=== PATIENT | female | born 1965 | race Caucasian/White ===

== ENCOUNTER → 2018-07-02 08:02 | Outpatient (CLI) | payer BC, SELFPAY ==
--- NOTE | 2018-07-02 08:04 | BI_ITS ---
MAMMOGRAPHY - BILATERAL SCREENING REASON FOR EXAM: Female, 52 years old. Routine annual screening examination. PERTINENT HISTORY: Non-contributory. TECHNIQUE: Digital bilateral breast crescencio (3D mammographic acquisition) in the CC and MLO projections. 2-D mediolateral oblique (MLO) and craniocaudad (CC) views of both breasts were obtained. CAD: Full Field Digital Mammography with Computer Added Detection was performed. COMPARISON: Comparison is made with prior study dated April 13, 2017. FINDINGS: Breast Composition: The breasts are heterogeneously dense, which may obscure small masses. There are no dominant masses or suspicious calcifications. Stable small bilateral axillary lymph nodes. No other significant abnormalities are identified. There has been no significant change since the prior study. BI/SCREENING MAMM (CAD), BILAT IMPRESSION: Stable bilateral screening mammogram. Yearly follow-up mammogram recommended. (A) ASSESSMENT CATEGORY: BIRADS Category 2: Benign. A letter regarding these results will be sent to the patient by the facility within 30 days. Approximately 10% of breast cancers are not detected by mammography. A normal mammogram should not delay biopsy of a clinically suspicious abnormality. [id number] Electronically Signed: Evens Streeter MD at 13:55 EST Tel [phone], Service support ,
== END ==
PROVIDERS: Family Provider Physician Assistant; PCP Physician Assistant; Visit Provider Obstetrics & Gynecology
DX: Z12.31 Encounter for screening mammogram for malignant neoplasm of breast (principal)
CPT/HCPCS: 77063; 77067

== ENCOUNTER 2018-08-29 08:43 | Inpatient (IN) | payer BC, SELFPAY ==
[2018-08-29] VITALS (12 sets, daily range): BP systolic 119–166; BP diastolic 64–87; PULSE 75–121; RESP 16–24; TEMP 36.9–38.8; O2SAT 88–99; BMI 34.0
--- NOTE | 2018-08-29 09:10 | ED.VISSUMM ---
- ER Visit Summary Date of Service: 08/29/18 Chief Complaint: Cough, fever and shortness of breath History of Present Illness: The patient is a 52 F past medical history of hypertension and depression. Also prediabetes. He states since last Monday about 6 days she started having a cough that was productive of sputum. Fever and is developed shortness of breath. She is also had some nausea vomiting and diarrhea. She went to the express care today at the [facility] had a chest x-ray that they were concerned was pneumonia and they sent her to the evaluation. Also there she was hypoxic with her pulse ox in the low to mid 80s. Physical Examination: Middle-aged female. Vital signs stable her pulse ox is 90% on room air sitting in bed. Heart rate 121. Fevers 101.9. Clinically she does not look septic or toxic. Obviously that is a possibility. HEENT exam mildly dry mucous membranes. No facial trauma. No droop. Neck nontender no JVD. Lungs dry cough. Coarse in both bases. Heart tachycardic rate about 120 no murmur. Abdomen soft and nontender. Normal bowel sounds no peritoneal signs. Remedies moving all 4. Calves nontender without edema or cords. Neurologically the patient is awake and alert. With no focal motor or sensory deficits. Back exam normal. Test Results: [facility] sent me over a copy of her chest x-ray it appears that she has bilateral lower lobe pneumonia. There is no effusion. She has a normal cardiac silhouette. CBC normal. White count of 5. Hemoglobin 13. Unremarkable potassium 3.4. Normal creatinine and gap. Lactic acid 1.4. Blood cultures pending. Emergency Department Course and Treatment: Patient will be treated with 2 L normal saline. P.o. Tylenol. Started on IV Rocephin and Zithromax for antibiotic treatment of community-acquired pneumonia On repeat exam patient is doing well at 10:08 AM. She and I discussed her test results. She is comfortable with the admission. I have already spoken to the hospitalist. Treatment Plan: IV antibiotics and IV fluids. Disposition: Admission Impression: Acute bilateral lower lobe pneumonia (community-acquired) This note was generated with [employer] software. It may contain incorrect words, spelling, and punctuation that were not noted in review of the chart prior to signing ED Disposition - Plan for ED Patient: Chief Complaint: Shortness of Breath Referrals: Will Miles PA [Primary Care Provider] -
--- NOTE | 2018-08-29 09:13 | ED.DCSUM_ITS ---
- ER Visit Summary Date of Service: 08/29/18 Chief Complaint: Cough, fever and shortness of breath History of Present Illness: The patient is a 52 F past medical history of hypertension and depression. Also prediabetes. He states since last Monday about 6 days she started having a cough that was productive of sputum. Fever and is developed shortness of breath. She is also had some nausea vomiting and diarrhea. She went to the express care today at the [facility] had a chest x-ray that they were concerned was pneumonia and they sent her to the evaluation. Also there she was hypoxic with her pulse ox in the low to mid 80s. Physical Examination: Middle-aged female. Vital signs stable her pulse ox is 90% on room air sitting in bed. Heart rate 121. Fevers 101.9. Clinically she does not look septic or toxic. Obviously that is a possibility. HEENT exam mildly dry mucous membranes. No facial trauma. No droop. Neck nontender no JVD. Lungs dry cough. Coarse in both bases. Heart tachycardic rate about 120 no murmur. Abdomen soft and nontender. Normal bowel sounds no peritoneal signs. Remedies moving all 4. Calves nontender without edema or cords. Neurologically the patient is awake and alert. With no focal motor or sensory deficits. Back exam normal. Test Results: [place] sent me over a copy of her chest x-ray it appears that she has bilateral lower lobe pneumonia. There is no effusion. She has a normal cardiac silhouette. CBC normal. White count of 5. Hemoglobin 13. Unremarkable potassium 3.4. Normal creatinine and gap. Lactic acid 1.4. Blood cultures pending. Emergency Department Course and Treatment: Patient will be treated with 2 L normal saline. P.o. Tylenol. Started on IV Rocephin and Zithromax for antibiotic treatment of community-acquired pneumonia On repeat exam patient is doing well at 10:08 AM. She and I discussed her test results. She is comfortable with the admission. I have already spoken to the hospitalist. Treatment Plan: IV antibiotics and IV fluids. Disposition: Admission Impression: Acute bilateral lower lobe pneumonia (community-acquired) This note was generated with [employer] software. It may contain incorrect words, spelling, and punctuation that were not noted in review of the chart prior to signing ED Disposition - Plan for ED Patient: Chief Complaint: Shortness of Breath Referrals: Will Miles PA [Primary Care Provider] -
[2018-08-29] MEDS: 0.9% Normal Saline 1,000 ML 999 ML IV ×2 (09:25)
[2018-08-29] MEDS: Ceftriaxone 1 GM/50 ML BAG IV (09:25)
--- NOTE | 2018-08-29 09:38 | ED.RN ---
pt drinking water. waiting to do sepsis screen 15 after water to ensure proper temp.
[2018-08-29 09:39] LABS: Absolute Lymphocyte Count 0.76 X10^3/ul (0.83-4.51); Absolute Neutrophil Count 4.2 X10^3/uL (2.0-7.7); Basophil# 0.01 X10^3/uL; Basophil% 0.2 % (0-1); Hematocrit 42.6 % (37-47); Hemoglobin 13.6 g/dl (12.0-15.0); Lymphocyte # 0.76 X10^3/ul (4.0); Lymphocyte % 14.5 % (19-41); Mean Corp Hgb Conc 31.9 g/gl (32-36); Mean Corpuscular Hgb 29.8 pg (27.0-32.0); Mean Corpuscular Volume 93.2 fL (81-99); Mean Platelet Vol. 10.3 fl (6.2-12.0); Monocyte# 0.25 X10^3/uL; Monocyte% 4.8 % (0-10); Neutrophil # 4.21 X10^3/uL (2.7-7.7); Neutrophil % 80.3 % (47-70); Platelet Count 188 K/mm3 (150-450); RBC Distribution Width CV 13.7 % (11.6-14.6); RBC Distribution Width SD 46.1 fl (35.1-43.9); Red Blood Count 4.57 M/mm3 (4.2-5.4); White Blood Count 5.2 K/mm3 (4.4-11.0)
[2018-08-29 09:41] LABS: Anion Gap 11 (5-15); BUN 11 mg/dL (7-18); BUN/Creat Ratio 15.7 RATIO (10-20); Calcium,Total 8.6 mg/dL (8.5-10.1); Chloride 100 mmol/L (98-107); EST Glomerular Filtration Rate 93 mL/min (>60); Est Glom Filt Rate - Afr Amer 113 mL/min (>60); Estimated Creatinine Clearance 74.35 ml/min; Glucose 152 mg/dL (74-106); Potassium 3.4 mmol/L (3.5-5.1); Sodium Level 135 mmol/L (136-145)
[2018-08-29] MEDS: Acetaminophen 500 MG Tablet 1000 MG PO (09:45)
[2018-08-29 09:47] LABS: POSITIVE COUNT NO; POSITIVE DIFFERENTIAL NO; POSITIVE MORPHOLOGY NO
[2018-08-29 09:51] LABS: Lactic Acid 1.4 mmol/L (0.4-2.0)
--- NOTE | 2018-08-29 10:04 | NURSING ---
DR FAULKNER FOR DR SNIDER
--- NOTE | 2018-08-29 10:20 | NURSING ---
MED SURG KAUSHIK FRASER CAP, HYPOXIA
--- NOTE | 2018-08-29 11:45 | HP.PCM_ITS ---
Problem List (1) Hypoxia Status: Acute (2) Sepsis Status: Acute (3) Community acquired pneumonia Status: Acute (4) GERD (gastroesophageal reflux disease) Status: Chronic (5) Depression Status: Chronic (6) Anxiety Status: Chronic (7) Prediabetes Status: Chronic History of Present Illness Date of Admission: 08/29/18 Chief Complaint: Fever, chills, productive cough. The patient is a 52 year old F with past medical history as mentioned above presented to the emergency room because of 6 days history of fever with chills, productive cough and mild shortness of breath. Her symptoms started around 6 days ago with flulike symptoms, mainly subjective fever with chills, associated with productive cough with light yellow sputum as well as body aches and pains and without aggravating or relieving factors. Over the last couple of days, she started having associated mild shortness of breath on activity and she continued to have productive cough with light yellow sputum. She did not check her temperature at home. She had diarrhea over the last couple of days, 3 times a day, loose stool without blood. Today, she went to urgent care where she had chest x-ray done and she was informed that she has bilateral pneumonia and she was sent to ER for evaluation. Upon arrival to ER, patient was febrile, tachycardic, blood pressure was slightly elevated, pulse ox was 90% on room air. Her routine blood work was remarkable for potassium of 3.4, blood sugar of 153, otherwise normal. Her lactic acid was normal. Chest x-ray official report reviewed and revealed base of the right upper lobe infiltrate as well as bilateral lower lung infiltrate. She is being admitted for bilateral community- acquired pneumonia with sepsis and complicated by hypoxia. Past Medical History Past Medical History (Chronic Problems): Chronic Problems GERD (gastroesophageal reflux disease) (Chronic) Depression (Chronic) Anxiety (Chronic) Prediabetes (Chronic) Allergies No Known Allergies Allergy (Verified 08/29/18 08:43) Home Medications: Ambulatory Orders Medication Instructions Recorded Paroxetine HCl [Paxil] 30 mg PO DAILY 08/29/18 Surgical History: - - Carpal tunnel syndrome surgery. Meniscal tear repair of the right knee. 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 Paternal History Items: No pertinent history Review of Systems Constitutional: Reports: Anorexia, Chills, Fever, Malaise. Denies: Weakness Eyes: Denies: Blurred vision, Double vision, Drainage, Redness HEENT: Reports: Nasal Congestion. Denies: Difficulty Hearing, Ear Pain, Eye Pain, Sore Throat Cardiovascular: Denies: Chest Pain, Chest Pressure, Light Headedness, Palpitations, Syncope Respiratory: Reports: Cough, Shortness of Breath, Sputum production. Denies: Pleuritic Pain, Wheezing Gastrointestinal: Reports: Diarrhea. Denies: Abdominal Pain, Constipation, Nausea, Vomiting Genitourinary: Denies: Dysuria, Frequency, Hematuria Musculoskeletal: Denies: Arm Pain, Back Pain, Foot Pain Skin: Denies: Dryness, Rash Neurological: Denies: Balance problems, Double vision, Change in Speech, Slurred speech, Confusion, Headaches, Incoordination, Numbness Psychiatric: Reports: Anxiety, Depression VTE Information - Inpt Only VTE Present on Admission: No VTE Mechan Device Prophylaxis: None VTE Pharm Prophylaxis ordered?: No Patient Problems: Active and Suspected Problems Hypoxia (Acute) Sepsis (Acute) Community acquired pneumonia (Acute) - Physical Exam General: Alert, Oriented x3, Cooperative, No apparent distress HEENT: Atraumatic, PERRLA, EOMI, Normocephalic Oral: Moist Mucosa, No Gingival or Mucosal Lesions/ Ulcerations Neck: Supple, No JVD, Negative Carotid Bruits, Trachea Midline, Thyroid Normal Size and Texture Lungs: No rhonchi, No wheeze, Diminished, Rales, - - Decreased breath sounds bilateral, faint crackles at the right base. Cardiovascular: Regular rate, Regular Rhythm, Normal S1, Normal S2, No murmurs, PMI Normal Abdomen: Bowel Sounds Present, Soft, Non Tender, Non-Distended, No Hepato-splenomegaly, Obese Extremities: No clubbing, No cyanosis, No edema Skin: No rashes, No breakdown Lymphatic: No Cervical, Supraclavicular, or Inguinal Adenopathy Neurological: Cranial nerves II-XII grossly intact, Motor Exam 5/5 strength throughout Psych/Mental Status: Normal Affect, Appropriate, Alert and oriented to time, place, person, mood and affect Vital Signs Temp Pulse Resp BP Pulse Ox 0 F L 79 21 H 121/77 H 92 08/29/18 11:24 08/29/18 11:24 08/29/18 11:24 08/29/18 11:24 08/29/18 11:24 Oxygen Flow Rate (L/min) 2 Oxygen Delivery Method Nasal Cannula Weight: 186 lb Body Mass Index (BMI) 34.0 Laboratory Tests Past 24 Hrs 08/29/18 08/29/18 08/29/18 09:10 09:10 09:10 WBC 5.2 RBC 4.57 Hgb 13.6 Hct 42.6 MCV 93.2 MCH 29.8 MCHC 31.9 L RDW 13.7 RDW Differential 46.1 H Plt Count 188 MPV 10.3 Immature Gran % (Auto) 0.200 Neut % (Auto) 80.3 H Lymph % (Auto) 14.5 L [place] % (Auto) 4.8 Eos % (Auto) 0.0 Baso % (Auto) 0.2 Absolute Neuts (auto) 4.2 Absolute Lymphs (auto) 0.76 L Total Counted Not Reportable Sodium 135 L Potassium 3.4 L Chloride 100 Carbon Dioxide 24.0 Anion Gap 11 BUN 11 Creatinine 0.70 Estim Creat Clear Calc 74.35 Est GFR (MDRD) Af Amer 113 Est GFR (MDRD) Non-Af 93 BUN/Creatinine Ratio 15.7 Glucose 152 H Lactic Acid 1.4 Calcium 8.6 Assessment/Plan All Active Problems Hypoxia (Acute) Sepsis (Acute) Community acquired pneumonia (Acute) This is a 52 years old female patient was sent from urgent care to ED for evaluation because she was found to have bilateral pneumonia on chest x-ray and she is being admitted for bilateral community-acquired pneumonia with sepsis as well as hypoxia. #1 bilateral community-acquired pneumonia/sepsis: Chest x-ray from the urgent care reviewed, revealed bilateral pneumonia, involving the base of the right upper lobe as well as bilateral lower lungs. Patient is septic based on fever, tachycardia upon arrival to ER as well as source of infection. At this time, her pulse ox is 92% on 2 L, blood pressure stable, heart rate stable. Her lactic acid is normal, no leukocytosis. Plan: Admit to Med[facility] floor, cardiac monitoring, blood culture, sputum culture, urinalysis, pneumococcal and Legionella antigen, respiratory panel for viruses, IV Rocephin and Zithromax for pneumonia, albuterol every 4 hours, repeat CBC and BMP tomorrow morning, incentive spirometer, chest physiotherapy. #2 hypoxia: Secondary to above. Patient never smoked. Initially upon arrival to ER, pulse ox was 90% on room air. Pulse ox improved with oxygen 2 L. Plan for albuterol every 4 hours, incentive spirometer, wean off oxygen as tolerated. #3 prediabetes: Not on any treatment. Blood sugar is 154. Plan: We will do hemoglobin A1c, Accu-Cheks q. before meals at bedtime. #4 GERD: She is not on any medications. Denies any complaints. Stable. #5 depression/anxiety: Continue Paxil. #6 DVT prophylaxis: Low-risk patient, no prophylaxis indicated. This note was generated with [employer] dictation software. It may contain incorrect words, spelling, and punctuation that were not noted in checking the note before signing. Code Visit Inpatient E&M: 15204 Init Hosp L3
[2018-08-29 11:50] LABS: Color, Urine Straw (Yellow); Glucose, Dipstick Normal (Normal); Ketone-Dipstick 15 mg/dl (Negative); Leukocyte Esterase-Dipstick Negative /ul (Negative); Nitrite-Dipstick Negative (Negative); Occult Blood-Urine Negative /ul (Negative); Protein-Dipstick Negative (Negative); Specific Gravity, Urine 1.005 (1.002-1.030); Urine Bilirubin Dipstick Negative (Negative); Urine Clarity Clear (Clear); Urine Urobilinogen Normal (Normal); Urine pH 6.5 (5.0 - 8.0)
--- NOTE | 2018-08-29 12:22 | RAD_ITS ---
STUDY: X-RAY CHEST REASON FOR EXAM: Female, 52 years old. Cough and shortness of breath. TECHNIQUE: PA and lateral views of the chest. COMPARISON: None. FINDINGS: EKG electrodes are seen. There is elevation of the right hemidiaphragm. Patchy infiltrate in the right upper and right lower lobes as well as in the lingular segment of the left upper lobe. Follow-up is recommended. There is no demonstrated pleural abnormality. Normal size heart. Normal mediastinum and hien. Normal visualized pulmonary arteries. Normal visualized aortic arch and descending thoracic aorta. Normal visualized thoracic spine. Normal visualized ribs, clavicles, and shoulders. There is no demonstrated abnormality of the visualized soft tissue structures of the upper abdomen. RAD/Chest PA and Lateral IMPRESSION: Bilateral patchy infiltrates. Follow-up is recommended. Electronically Signed: Evens Streeter MD at 15:22 EST Tel [phone], Service support ,
[2018-08-29 12:37] LABS: Hemoglobin A1c 6.7 % (4.2-6.3)
[2018-08-29 16:36] LABS: Bedside Glucose 87 mg/dL (70-110)
[2018-08-29] MEDS: Acetaminophen 325 MG Tablet 650 MG PO (16:56)
[2018-08-29] MEDS: PARoxetine 10 MG Tablet 30 MG PO (17:56)
[2018-08-29] MEDS: 0.9% Normal Saline 1,000 ML 100 ML IV (21:20)
[2018-08-29] MEDS: guaiFENesin 1,200 MG Tablet 1200 MG PO (21:21)
[2018-08-29] MEDS: DiphenhydrAMINE 25 MG Capsule PO (22:12)
[2018-08-29 22:16] LABS: Bedside Glucose 84 mg/dL (70-110)
[2018-08-30] VITALS (10 sets, daily range): BP systolic 109–134; BP diastolic 68–80; PULSE 77–85; RESP 16–18; TEMP 36.9–37.2; O2SAT 92–96
[2018-08-30] MEDS: Acetaminophen 325 MG Tablet 650 MG PO ×4 (00:05→18:04)
[2018-08-30] MEDS: Benzonatate 100 MG Capsule PO ×3 (00:27→21:38)
[2018-08-30] MEDS: 0.9% Normal Saline 1,000 ML 100 ML IV ×2 (06:03→16:52)
[2018-08-30 06:16] LABS: Bedside Glucose 94 mg/dL (70-110)
[2018-08-30 06:35] LABS: Anion Gap 9 (5-15); BUN 4 mg/dL (7-18); BUN/Creat Ratio 7.3 RATIO (10-20); Calcium,Total 8.1 mg/dL (8.5-10.1); Chloride 107 mmol/L (98-107); Creatinine, Serum 0.55 mg/dL (0.55-1.02); EST Glomerular Filtration Rate 124 mL/min (>60); Est Glom Filt Rate - Afr Amer 149 mL/min (>60); Estimated Creatinine Clearance 94.63 ml/min; Glucose 94 mg/dL (74-106); Potassium 4.2 mmol/L (3.5-5.1); Sodium Level 141 mmol/L (136-145)
[2018-08-30 06:39] LABS: Absolute Lymphocyte Count 1.12 X10^3/ul (0.83-4.51); Absolute Neutrophil Count 2.5 X10^3/uL (2.0-7.7); Basophil# 0.01 X10^3/uL; Basophil% 0.3 % (0-1); Hematocrit 40.9 % (37-47); Hemoglobin 12.9 g/dl (12.0-15.0); Lymphocyte # 1.12 X10^3/ul (4.0); Lymphocyte % 29.7 % (19-41); Mean Corp Hgb Conc 31.5 g/gl (32-36); Mean Corpuscular Hgb 30.1 pg (27.0-32.0); Mean Corpuscular Volume 95.6 fL (81-99); Mean Platelet Vol. 10.2 fl (6.2-12.0); Monocyte# 0.13 X10^3/uL; Monocyte% 3.4 % (0-10); Neutrophil % 66.3 % (47-70); Platelet Count 174 K/mm3 (150-450); RBC Distribution Width CV 14.1 % (11.6-14.6); RBC Distribution Width SD 48.9 fl (35.1-43.9); Red Blood Count 4.28 M/mm3 (4.2-5.4); White Blood Count 3.8 K/mm3 (4.4-11.0)
[2018-08-30 06:43] LABS: POSITIVE COUNT NO; POSITIVE DIFFERENTIAL NO; POSITIVE MORPHOLOGY NO
--- NOTE | 2018-08-30 08:10 | PCM.PROGNOTE ---
Patient Problems: Active and Suspected Problems Hypoxia (Acute) Sepsis (Acute) Community acquired pneumonia (Acute) Subjective: Chief complaint: Follow-up after admission for acute bilateral lower lobe community-acquired pneumonia with sepsis as well as hypoxia. Patient seen and examined. No acute events overnight. She reported mild improvement of her symptoms, less short of breath but still complaining of cough. Denies fever chills. She complained of headache as well. She is afebrile, blood pressure and heart rate are stable, pulse ox is 93% on 2.5 L. - Physical Exam General: Alert, Oriented x3, Cooperative, No apparent distress HEENT: Atraumatic, PERRLA, EOMI, Normocephalic Oral: Moist Mucosa, No Gingival or Mucosal Lesions/ Ulcerations Neck: Supple, No JVD, Negative Carotid Bruits, Trachea Midline, Thyroid Normal Size and Texture Lungs: No rhonchi, No wheeze, Diminished, Rales, - - Decreased breath sounds bilaterally more at the bases, bilateral faint basal crackles. Cardiovascular: Regular rate, Regular Rhythm, Normal S1, Normal S2, PMI Normal Abdomen: Bowel Sounds Present, Soft, Non Tender, Non-Distended, No Hepato-splenomegaly Extremities: No clubbing, No cyanosis, No edema Skin: No rashes, No breakdown Lymphatic: No Cervical, Supraclavicular, or Inguinal Adenopathy Neurological: Cranial nerves II-XII grossly intact, Neuro grossly intact Psych/Mental Status: Normal Affect, Appropriate, Alert and oriented to time, place, person, mood and affect Vital Signs Temp Pulse Resp BP Pulse Ox 98.6 F 77 18 125/69 H 93 08/30/18 07:40 08/30/18 07:40 08/30/18 07:40 08/30/18 07:40 08/30/18 07:40 Oxygen Flow Rate (L/min) 2.5 Oxygen Delivery Method Nasal Cannula Weight: 186 lb Body Mass Index (BMI) 34.0 Intake and Output for Last 24 Hours 08/28/18 08/29/18 08/30/18 23:59 23:59 23:59 Intake Total 1013 / 1013 1910 / 1910 Output Total 300 / 300 600 / 600 Balance 713 / 713 1310 / 1310 Microbiology Past 72 Hours 08/29/18 11:55 Gram Stain - Final Sputum, Expectorated/Coughed 08/29/18 11:22 Streptococcus pneumoniae Antigen (M - Final Urine, Clean Catch 08/29/18 11:22 Legionella Antigen - Final Urine, Clean Catch Laboratory Tests Past 24 Hrs 08/29/18 08/29/18 08/29/18 09:10 09:10 09:10 WBC 5.2 RBC 4.57 Hgb 13.6 Hct 42.6 MCV 93.2 MCH 29.8 MCHC 31.9 L RDW 13.7 RDW Differential 46.1 H Plt Count 188 MPV 10.3 Immature Gran % (Auto) 0.200 Neut % (Auto) 80.3 H Lymph % (Auto) 14.5 L [place] % (Auto) 4.8 Eos % (Auto) 0.0 Baso % (Auto) 0.2 Absolute Neuts (auto) 4.2 Absolute Lymphs (auto) 0.76 L Total Counted Not Reportable Sodium 135 L Potassium 3.4 L Chloride 100 Carbon Dioxide 24.0 Anion Gap 11 BUN 11 Creatinine 0.70 Estim Creat Clear Calc 74.35 Est GFR (MDRD) Af Amer 113 Est GFR (MDRD) Non-Af 93 BUN/Creatinine Ratio 15.7 Glucose 152 H Hemoglobin A1c Lactic Acid 1.4 Calcium 8.6 Urine Color Urine Clarity Urine pH Ur Specific [place] Urine Protein Urine Glucose (UA) Urine Ketones Urine Occult Blood Urine Nitrite Urine Bilirubin Urine Urobilinogen Ur Leukocyte Esterase 08/29/18 08/29/18 08/30/18 09:10 11:22 05:50 WBC RBC Hgb Hct MCV MCH MCHC RDW RDW Differential Plt Count MPV Immature Gran % (Auto) Neut % (Auto) Lymph % (Auto) [place] % (Auto) Eos % (Auto) Baso % (Auto) Absolute Neuts (auto) Absolute Lymphs (auto) Total Counted Sodium 141 Potassium 4.2 Chloride 107 Carbon Dioxide 25.0 Anion Gap 9 BUN 4 L Creatinine 0.55 Estim Creat Clear Calc 94.63 Est GFR (MDRD) Af Amer 149 Est GFR (MDRD) Non-Af 124 BUN/Creatinine Ratio 7.3 L Glucose 94 Hemoglobin A1c 6.7 H Lactic Acid Calcium 8.1 L Urine Color Straw Urine Clarity Clear Urine pH 6.5 Ur Specific [place] 1.005 Urine Protein Negative Urine Glucose (UA) Normal Urine Ketones 15 H Urine Occult Blood Negative Urine Nitrite Negative Urine Bilirubin Negative Urine Urobilinogen Normal Ur Leukocyte Esterase Negative 08/30/18 05:50 WBC 3.8 L RBC 4.28 Hgb 12.9 Hct 40.9 MCV 95.6 MCH 30.1 MCHC 31.5 L RDW 14.1 RDW Differential 48.9 H Plt Count 174 MPV 10.2 Immature Gran % (Auto) 0.300 Neut % (Auto) 66.3 Lymph % (Auto) 29.7 [place] % (Auto) 3.4 Eos % (Auto) 0.0 Baso % (Auto) 0.3 Absolute Neuts (auto) 2.5 Absolute Lymphs (auto) 1.12 Total Counted Not Reportable Sodium Potassium Chloride Carbon Dioxide Anion Gap BUN Creatinine Estim Creat Clear Calc Est GFR (MDRD) Af Amer Est GFR (MDRD) Non-Af BUN/Creatinine Ratio Glucose Hemoglobin A1c Lactic Acid Calcium Urine Color Urine Clarity Urine pH Ur Specific [place] Urine Protein Urine Glucose (UA) Urine Ketones Urine Occult Blood Urine Nitrite Urine Bilirubin Urine Urobilinogen Ur Leukocyte Esterase POC Glucose 08/30/18 08/29/18 08/29/18 06:12 21:24 16:32 POC Glucose 94 84 87 Clinical Impression(s) from Imaging Studies Chest X-Ray 08/29/18 12:22 IMPRESSION: Bilateral patchy infiltrates. Follow-up is recommended. Electronically Signed: Evens Streeter MD at 15:22 EST Tel [phone], Service support , Medical Necessity - Tobacco Use Smoking Status: Never smoker Assessment/Plan All Active Problems Hypoxia (Acute) Sepsis (Acute) Community acquired pneumonia (Acute) This is a 52 years old female patient was sent from urgent care to ED for evaluation because she was found to have bilateral pneumonia on chest x-ray and she is being admitted for bilateral community-acquired pneumonia with sepsis as well as hypoxia. #1 bilateral community-acquired pneumonia/sepsis: She is on IV Rocephin and Zithromax. She has been afebrile, no leukocytosis. Chest x-ray that was done in the hospital here reviewed, revealed bilateral basilar infiltrate. Pneumococcal and Legionella antigen are negative. Blood and sputum cultures are pending. Respiratory panel for viruses is pending as well. Plan: Start albuterol every 6 hours, chest physical therapy, continue other treatments. #2 hypoxia: Secondary to above. Patient reported some improvement in her symptoms. Pulse ox is 92% on 2.5 L. Plan to start albuterol [id number], encourage incentive spirometer, chest physiotherapy, continue IV antibiotics, wean off oxygen as tolerated. #3 prediabetes: Not on any treatment. Hemoglobin A1c was 6.7. Blood glucose has been in the range of 80s-90s. No indication to start treatment and will discontinue Accu-Cheks. #4 GERD: She is not on any medications. Denies any complaints. Stable. #5 depression/anxiety: Continue Paxil. #6 DVT prophylaxis: Low-risk patient, no prophylaxis indicated. This note was generated with [employer] dictation software. It may contain incorrect words, spelling, and punctuation that were not noted in checking the note before signing. Code Visit Inpatient E&M: 38034 Subs Hosp L2
--- NOTE | 2018-08-30 08:14 | PN_ITS ---
Patient Problems: Active and Suspected Problems Hypoxia (Acute) Sepsis (Acute) Community acquired pneumonia (Acute) Subjective: Chief complaint: Follow-up after admission for acute bilateral lower lobe community-acquired pneumonia with sepsis as well as hypoxia. Patient seen and examined. No acute events overnight. She reported mild improvement of her symptoms, less short of breath but still complaining of cough. Denies fever chills. She complained of headache as well. She is afebrile, blood pressure and heart rate are stable, pulse ox is 93% on 2.5 L. - Physical Exam General: Alert, Oriented x3, Cooperative, No apparent distress HEENT: Atraumatic, PERRLA, EOMI, Normocephalic Oral: Moist Mucosa, No Gingival or Mucosal Lesions/ Ulcerations Neck: Supple, No JVD, Negative Carotid Bruits, Trachea Midline, Thyroid Normal Size and Texture Lungs: No rhonchi, No wheeze, Diminished, Rales, - - Decreased breath sounds bilaterally more at the bases, bilateral faint basal crackles. Cardiovascular: Regular rate, Regular Rhythm, Normal S1, Normal S2, PMI Normal Abdomen: Bowel Sounds Present, Soft, Non Tender, Non-Distended, No Hepato- splenomegaly Extremities: No clubbing, No cyanosis, No edema Skin: No rashes, No breakdown Lymphatic: No Cervical, Supraclavicular, or Inguinal Adenopathy Neurological: Cranial nerves II-XII grossly intact, Neuro grossly intact Psych/Mental Status: Normal Affect, Appropriate, Alert and oriented to time, place, person, mood and affect Vital Signs Temp Pulse Resp BP Pulse Ox 98.6 F 77 18 125/69 H 93 08/30/18 07:40 08/30/18 07:40 08/30/18 07:40 08/30/18 07:40 08/30/18 07:40 Oxygen Flow Rate (L/min) 2.5 Oxygen Delivery Method Nasal Cannula Weight: 186 lb Body Mass Index (BMI) 34.0 Intake and Output for Last 24 Hours 08/28/18 08/29/18 08/30/18 23:59 23:59 23:59 Intake Total 1013 / 1013 1910 / 1910 Output Total 300 / 300 600 / 600 Balance 713 / 713 1310 / 1310 Microbiology Past 72 Hours 08/29/18 11:55 Gram Stain - Final Sputum, Expectorated/Coughed 08/29/18 11:22 Streptococcus pneumoniae Antigen (M - Final Urine, Clean Catch 08/29/18 11:22 Legionella Antigen - Final Urine, Clean Catch Laboratory Tests Past 24 Hrs 08/29/18 08/29/18 08/29/18 09:10 09:10 09:10 WBC 5.2 RBC 4.57 Hgb 13.6 Hct 42.6 MCV 93.2 MCH 29.8 MCHC 31.9 L RDW 13.7 RDW Differential 46.1 H Plt Count 188 MPV 10.3 Immature Gran % (Auto) 0.200 Neut % (Auto) 80.3 H Lymph % (Auto) 14.5 L [place] % (Auto) 4.8 Eos % (Auto) 0.0 Baso % (Auto) 0.2 Absolute Neuts (auto) 4.2 Absolute Lymphs (auto) 0.76 L Total Counted Not Reportable Sodium 135 L Potassium 3.4 L Chloride 100 Carbon Dioxide 24.0 Anion Gap 11 BUN 11 Creatinine 0.70 Estim Creat Clear Calc 74.35 Est GFR (MDRD) Af Amer 113 Est GFR (MDRD) Non-Af 93 BUN/Creatinine Ratio 15.7 Glucose 152 H Hemoglobin A1c Lactic Acid 1.4 Calcium 8.6 Urine Color Urine Clarity Urine pH Ur Specific [place] Urine Protein Urine Glucose (UA) Urine Ketones Urine Occult Blood Urine Nitrite Urine Bilirubin Urine Urobilinogen Ur Leukocyte Esterase 08/29/18 08/29/18 08/30/18 09:10 11:22 05:50 WBC RBC Hgb Hct MCV MCH MCHC RDW RDW Differential Plt Count MPV Immature Gran % (Auto) Neut % (Auto) Lymph % (Auto) [place] % (Auto) Eos % (Auto) Baso % (Auto) Absolute Neuts (auto) Absolute Lymphs (auto) Total Counted Sodium 141 Potassium 4.2 Chloride 107 Carbon Dioxide 25.0 Anion Gap 9 BUN 4 L Creatinine 0.55 Estim Creat Clear Calc 94.63 Est GFR (MDRD) Af Amer 149 Est GFR (MDRD) Non-Af 124 BUN/Creatinine Ratio 7.3 L Glucose 94 Hemoglobin A1c 6.7 H Lactic Acid Calcium 8.1 L Urine Color Straw Urine Clarity Clear Urine pH 6.5 Ur Specific [place] 1.005 Urine Protein Negative Urine Glucose (UA) Normal Urine Ketones 15 H Urine Occult Blood Negative Urine Nitrite Negative Urine Bilirubin Negative Urine Urobilinogen Normal Ur Leukocyte Esterase Negative 08/30/18 05:50 WBC 3.8 L RBC 4.28 Hgb 12.9 Hct 40.9 MCV 95.6 MCH 30.1 MCHC 31.5 L RDW 14.1 RDW Differential 48.9 H Plt Count 174 MPV 10.2 Immature Gran % (Auto) 0.300 Neut % (Auto) 66.3 Lymph % (Auto) 29.7 [place] % (Auto) 3.4 Eos % (Auto) 0.0 Baso % (Auto) 0.3 Absolute Neuts (auto) 2.5 Absolute Lymphs (auto) 1.12 Total Counted Not Reportable Sodium Potassium Chloride Carbon Dioxide Anion Gap BUN Creatinine Estim Creat Clear Calc Est GFR (MDRD) Af Amer Est GFR (MDRD) Non-Af BUN/Creatinine Ratio Glucose Hemoglobin A1c Lactic Acid Calcium Urine Color Urine Clarity Urine pH Ur Specific [place] Urine Protein Urine Glucose (UA) Urine Ketones Urine Occult Blood Urine Nitrite Urine Bilirubin Urine Urobilinogen Ur Leukocyte Esterase POC Glucose 08/30/18 08/29/18 08/29/18 06:12 21:24 16:32 POC Glucose 94 84 87 Clinical Impression(s) from Imaging Studies Chest X-Ray 08/29/18 12:22 IMPRESSION: Bilateral patchy infiltrates. Follow-up is recommended. Electronically Signed: Evens Streeter MD at 15:22 EST Tel [phone], Service support , Medical Necessity - Tobacco Use Smoking Status: Never smoker Assessment/Plan All Active Problems Hypoxia (Acute) Sepsis (Acute) Community acquired pneumonia (Acute) This is a 52 years old female patient was sent from urgent care to ED for evaluation because she was found to have bilateral pneumonia on chest x-ray and she is being admitted for bilateral community-acquired pneumonia with sepsis as well as hypoxia. #1 bilateral community-acquired pneumonia/sepsis: She is on IV Rocephin and Zithromax. She has been afebrile, no leukocytosis. Chest x-ray that was done in the hospital here reviewed, revealed bilateral basilar infiltrate. Pneumococcal and Legionella antigen are negative. Blood and sputum cultures are pending. Respiratory panel for viruses is pending as well. Plan: Start albuterol every 6 hours, chest physical therapy, continue other treatments. #2 hypoxia: Secondary to above. Patient reported some improvement in her symptoms. Pulse ox is 92% on 2.5 L. Plan to start albuterol [id number], encourage incentive spirometer, chest physiotherapy, continue IV antibiotics, wean off oxygen as tolerated. #3 prediabetes: Not on any treatment. Hemoglobin A1c was 6.7. Blood glucose has been in the range of 80s-90s. No indication to start treatment and will discontinue Accu-Cheks. #4 GERD: She is not on any medications. Denies any complaints. Stable. #5 depression/anxiety: Continue Paxil. #6 DVT prophylaxis: Low-risk patient, no prophylaxis indicated. This note was generated with [employer] game platform dictation software. It may contain incorrect words, spelling, and punctuation that were not noted in checking the note before signing. Code Visit Inpatient E&M: 65223 Subs Hosp L2
[2018-08-30] MEDS: Ceftriaxone 1 GM/50 ML BAG IV (09:22)
[2018-08-30] MEDS: guaiFENesin 1,200 MG Tablet 1200 MG PO ×2 (09:32→21:35)
[2018-08-30] MEDS: Oseltamivir Phosphate 75 MG Capsule PO ×2 (10:54→21:35)
[2018-08-30] MEDS: Albuterol 2.5 MG/3 ML VIAL.NEB. INHALATION ×2 (13:20→19:10)
--- NOTE | 2018-08-30 13:52 | CASEMGMT ---
As per Admitting RN, pt has LW/POA, but unable to bring in POA form at this time. JOSE A Guaman, [employer] SOFTWARE DEVELOPER
[2018-08-30] MEDS: 0.9% NaCl Peripheral Flush Adult/Peds IV (14:42)
[2018-08-30] MEDS: PARoxetine 10 MG Tablet 30 MG PO (16:40)
[2018-08-30] MEDS: Ondansetron 4 MG/2 ML Vial IV (18:14)
[2018-08-30] MEDS: Ibuprofen 600 MG Tablet PO (18:30)
[2018-08-30] MEDS: Loperamide 2 MG Capsule PO (18:31)
[2018-08-30] MEDS: DiphenhydrAMINE 25 MG Capsule PO (21:35)
[2018-08-31] VITALS (9 sets, daily range): BP systolic 110–164; BP diastolic 70–84; PULSE 71–94; RESP 16–20; TEMP 36.6–37.1; O2SAT 89–95
[2018-08-31] MEDS: Albuterol 2.5 MG/3 ML VIAL.NEB. INHALATION ×4 (01:08→19:05)
[2018-08-31] MEDS: 0.9% Normal Saline 1,000 ML 100 ML IV (03:30)
[2018-08-31] MEDS: Acetaminophen 325 MG Tablet 650 MG PO ×3 (03:30→16:19)
[2018-08-31] MEDS: Ibuprofen 600 MG Tablet PO ×3 (03:30→20:04)
--- NOTE | 2018-08-31 08:29 | PN_ITS ---
Patient Problems: Active and Suspected Problems Hypoxia (Acute) Sepsis (Acute) Community acquired pneumonia (Acute) Subjective: Chief complaint: Follow-up after admission for acute bilateral lower lobe community-acquired pneumonia/post viral pneumonia, influenza A with sepsis as well as hypoxia. Patient seen and examined. No acute events overnight. Today, she mentioned that her breathing is better, still having cough with minimal sputum. Headache improved. No fever. Her vital signs are stable, pulse ox is 94% on 2 L. - Physical Exam General: Alert, Oriented x3, Cooperative, No apparent distress HEENT: Atraumatic, PERRLA, EOMI, Normocephalic Oral: Moist Mucosa, No Gingival or Mucosal Lesions/ Ulcerations Neck: Supple, No JVD, Negative Carotid Bruits Lungs: No rhonchi, No wheeze, Diminished, Rales, - - Decreased breath sounds bilateral at the bases, crackles on the right base. Cardiovascular: Regular rate, Regular Rhythm, Normal S1, Normal S2, No murmurs Abdomen: Bowel Sounds Present, Soft, Non Tender, Non-Distended, No Hepato- splenomegaly Extremities: No clubbing, No cyanosis, No edema Skin: No rashes, No breakdown Lymphatic: No Cervical, Supraclavicular, or Inguinal Adenopathy Neurological: Cranial nerves II-XII grossly intact, Neuro grossly intact Psych/Mental Status: Normal Affect, Appropriate, Alert and oriented to time, place, person, mood and affect Vital Signs Temp Pulse Resp BP Pulse Ox 98.2 F 78 16 110/71 95 08/31/18 03:30 08/31/18 07:44 08/31/18 07:44 08/31/18 03:30 08/31/18 07:44 Oxygen Flow Rate (L/min) 2 Oxygen Delivery Method Nasal Cannula Weight: 186 lb Body Mass Index (BMI) 34.0 Intake and Output for Last 24 Hours 08/29/18 08/30/18 08/31/18 23:59 23:59 23:59 Intake Total 1013 / 1013 3629 / 3629 1542 / 1542 Output Total 300 / 300 1300 / 1300 300 / 300 Balance 713 / 713 2329 / 2329 1242 / 1242 Microbiology Past 72 Hours 08/29/18 09:10 Blood Culture - Preliminary Blood Culture (Wb) - Anticubital Left No growth in 48 hours. 08/29/18 09:20 Blood Culture - Preliminary Blood Culture (Wb) - Anticubital Right No growth in 48 hours. 08/29/18 11:55 Gram Stain - Final Sputum, Expectorated/Coughed Respiratory Culture - Preliminary Appears to be normal respiratory debi. Further studies to follow. 08/30/18 10:55 C. difficile DNA Amplification - Final Stool 08/29/18 14:40 Respiratory Panel (PCR) - Final Mucosa - Nose Influenza A (Subtype H1) 08/29/18 11:22 Streptococcus pneumoniae Antigen (M - Final Urine, Clean Catch 08/29/18 11:22 Legionella Antigen - Final Urine, Clean Catch Medical Necessity - Tobacco Use Smoking Status: Never smoker Assessment/Plan All Active Problems Hypoxia (Acute) Sepsis (Acute) Community acquired pneumonia (Acute) This is a 52 years old female patient was sent from urgent care to ED for evaluation because she was found to have bilateral pneumonia on chest x-ray and she is being admitted for bilateral community-acquired pneumonia with sepsis as well as hypoxia. #1 Acute bilateral lower lobe community-acquired pneumonia/viral pneumonia/sepsis: She is on IV Rocephin and Zithromax, started on Tamiflu yesterday. She remained afebrile, other vital signs are stable. Pneumococcal and Legionella antigen are negative. Blood and sputum cultures showed no growth in 48 hours. Respiratory panel for viruses was positive for influenza A subtype H1. Sputum culture revealed normal respiratory debi. Plan to continue same treatment, wean off oxygen as tolerated, anticipate discharge home tomorrow. #2 hypoxia: Secondary to above. Patient reported continued improvement in her symptoms. Pulse ox is 95% on 2 L. She is on albuterol as needed. #3 prediabetes: Not on any treatment. Hemoglobin A1c was 6.7. Blood glucose has been in the range of 80s-90s. #4 GERD: She is not on any medications. Denies any complaints. Stable. #5 depression/anxiety: Continue Paxil. #6 DVT prophylaxis: Low-risk patient, no prophylaxis indicated. This note was generated with [employer] software. It may contain incorrect words, spelling, and punctuation that were not noted in checking the note before signing. Code Visit Inpatient E&M: 51756 Subs Hosp L2
[2018-08-31] MEDS: guaiFENesin 1,200 MG Tablet 1200 MG PO ×2 (09:01→21:19)
[2018-08-31] MEDS: Oseltamivir Phosphate 75 MG Capsule PO ×2 (09:01→21:19)
[2018-08-31] MEDS: Ceftriaxone 1 GM/50 ML BAG IV (10:39)
--- NOTE | 2018-08-31 11:58 | CASEMGMT ---
RN CM Assessment. PCP: FRED Cai Pharmacy: [facility] Prescription Coverage: yes Living arrangements: Independent, with . DC PLAN: home on discharge, no needs identified.
--- NOTE | 2018-08-31 14:45 | NURSING ---
moved to room [id number]
[2018-08-31] MEDS: PARoxetine 10 MG Tablet 30 MG PO (16:28)
[2018-08-31] MEDS: DiphenhydrAMINE 25 MG Capsule PO (21:22)
[2018-09-01] VITALS (14 sets, daily range): BP systolic 136–156; BP diastolic 69–90; PULSE 74–87; RESP 16–24; TEMP 36.7–37.1; O2SAT 83–95
[2018-09-01] MEDS: Albuterol 2.5 MG/3 ML VIAL.NEB. INHALATION ×5 (00:55→22:09)
[2018-09-01] MEDS: Acetaminophen 325 MG Tablet 650 MG PO ×3 (02:03→17:52)
[2018-09-01] MEDS: Ibuprofen 600 MG Tablet PO (07:57)
[2018-09-01] MEDS: Ceftriaxone 1 GM/50 ML BAG IV (11:05)
[2018-09-01] MEDS: guaiFENesin 1,200 MG Tablet 1200 MG PO ×2 (11:10→22:13)
[2018-09-01] MEDS: Oseltamivir Phosphate 75 MG Capsule PO ×2 (11:10→22:13)
[2018-09-01] MEDS: 0.9% NaCl Peripheral Flush Adult/Peds IV (11:11)
--- NOTE | 2018-09-01 12:03 | RAD_ITS ---
STUDY: X-RAY CHEST REASON FOR EXAM: Female, 52 years old. Shortness of breath. History of pneumonia and flu. TECHNIQUE: PA and lateral views of the chest were obtained. With good film quality COMPARISON: August 29, 2018 FINDINGS: There is increased airspace opacification in the mid to lower lungs bilaterally. There is no demonstrated pleural abnormality. Normal size heart. Normal mediastinum and hien. Normal visualized pulmonary arteries. Normal visualized aortic arch and descending thoracic aorta. Normal visualized thoracic spine. Normal visualized ribs, clavicles, and shoulders. There is no demonstrated abnormality of the visualized soft tissue structures of the upper abdomen. RAD/Chest PA and Lateral IMPRESSION: Worsening bilateral airspace disease. Electronically Signed: Kyler Jameson, at 13:17 EST Tel , Service support ,
--- NOTE | 2018-09-01 13:24 | PCM.PROGNOTE ---
Patient Problems: Active and Suspected Problems Hypoxia (Acute) Sepsis (Acute) Community acquired pneumonia (Acute) Subjective: Chief complaint: Follow-up after admission for viral pneumonia, probable acute bilateral lower lobe community-acquired pneumonia, influenza A and sepsis. Patient seen and examined. No acute events overnight. Her symptoms continued to improve very slowly, she is still requiring oxygen. Still complaining of dry cough, no sputum. She has been afebrile. Blood pressure and heart rate are stable, pulse ox is 92% on 2 L. - Physical Exam General: Alert, Oriented x3, Cooperative, No apparent distress HEENT: Atraumatic, PERRLA, EOMI, Normocephalic Oral: Moist Mucosa, No Gingival or Mucosal Lesions/ Ulcerations Neck: Supple, No JVD, Negative Carotid Bruits, Trachea Midline, Thyroid Normal Size and Texture Lungs: No rhonchi, No wheeze, Diminished, Rales, - - Decreased breath sounds in the bases, bilateral basal crackles. Cardiovascular: Regular rate, Regular Rhythm, Normal S1, Normal S2, No murmurs Abdomen: Bowel Sounds Present, Soft, Non Tender, Non-Distended, No Hepato-splenomegaly Extremities: No clubbing, No cyanosis, No edema Skin: No rashes, No breakdown Lymphatic: No Cervical, Supraclavicular, or Inguinal Adenopathy Neurological: Cranial nerves II-XII grossly intact, Neuro grossly intact Psych/Mental Status: Normal Affect, Appropriate, Alert and oriented to time, place, person, mood and affect Vital Signs Temp Pulse Resp BP Pulse Ox 98.7 F 86 22 H 136/69 H 92 09/01/18 02:00 09/01/18 13:06 09/01/18 13:06 09/01/18 02:00 09/01/18 06:56 Oxygen Flow Rate (L/min) 2 Oxygen Delivery Method Nasal Cannula Weight: 186 lb Body Mass Index (BMI) 34.0 Intake and Output for Last 24 Hours 08/30/18 08/31/18 09/01/18 23:59 23:59 23:59 Intake Total 3629 / 3629 1842 / 1842 700 / 700 Output Total 1300 / 1300 300 / 300 Balance 2329 / 2329 1542 / 1542 700 / 700 Microbiology Past 72 Hours 08/29/18 11:55 Gram Stain - Final Sputum, Expectorated/Coughed Respiratory Culture - Final Mixed normal respiratory debi. No Haemophilus, Streptococcus pneumoniae, beta-hemolytic Streptococcus or Staphylococcus aureus isolated. 08/29/18 09:10 Blood Culture - Preliminary Blood Culture (Wb) - Anticubital Left No growth in 48 hours. 08/29/18 09:20 Blood Culture - Preliminary Blood Culture (Wb) - Anticubital Right No growth in 48 hours. 08/30/18 10:55 C. difficile DNA Amplification - Final Stool 08/29/18 14:40 Respiratory Panel (PCR) - Final Mucosa - Nose Influenza A (Subtype H1) 08/29/18 11:22 Streptococcus pneumoniae Antigen (M - Final Urine, Clean Catch 08/29/18 11:22 Legionella Antigen - Final Urine, Clean Catch Clinical Impression(s) from Imaging Studies Chest X-Ray 09/01/18 12:03 IMPRESSION: Worsening bilateral airspace disease. Electronically Signed: Kyler Jameson, at 13:17 EST Tel , Service support , Medical Necessity - Tobacco Use Smoking Status: Never smoker Assessment/Plan All Active Problems Hypoxia (Acute) Sepsis (Acute) Community acquired pneumonia (Acute) This is a 52 years old female patient was sent from urgent care to ED for evaluation because she was found to have bilateral pneumonia on chest x-ray and she is being admitted for bilateral community-acquired pneumonia with sepsis as well as hypoxia. #1 Viral pneumonia/probable bilateral lower lobe community acquired pneumonia/sepsis: She completed 3 doses of IV Zithromax, now on IV Rocephin. also on Tamiflu. She remained afebrile, other vital signs are stable. Pneumococcal and Legionella antigen are negative. Blood and sputum cultures showed no growth in 48 hours. Respiratory panel for viruses was positive for influenza A subtype H1. Sputum culture revealed normal respiratory debi. Repeat chest x-ray from today revealed worsening bilateral basilar infiltrate. Her pulse ox remained stable on 2 L. Plan: Continue same treatment. #2 hypoxia: Secondary to above. Patient reported continued improvement in her symptoms. Pulse ox is 92% on 2 L. Will change albuterol to every 4 hours #3 prediabetes: Not on any treatment. Hemoglobin A1c was 6.7. Blood glucose has been in the range of 80s-90s. #4 GERD: She is not on any medications. Denies any complaints. Stable. #5 depression/anxiety: Continue Paxil. #6 DVT prophylaxis: Low-risk patient, no prophylaxis indicated. This note was generated with [employer] software. It may contain incorrect words, spelling, and punctuation that were not noted in checking the note before signing. Code Visit Inpatient E&M: 10259 Subs Hosp L2
[2018-09-01] MEDS: PARoxetine 10 MG Tablet 30 MG PO (17:49)
[2018-09-01] MEDS: Benzonatate 100 MG Capsule PO (17:55)
[2018-09-02] VITALS (13 sets, daily range): BP systolic 143–156; BP diastolic 81–94; PULSE 73–94; RESP 17–20; TEMP 36.9–37.3; O2SAT 85–96
[2018-09-02] MEDS: Albuterol 2.5 MG/3 ML VIAL.NEB. INHALATION ×6 (03:21→22:30)
[2018-09-02] MEDS: 0.9% NaCl Peripheral Flush Adult/Peds IV ×2 (03:53→09:42)
[2018-09-02] MEDS: Ibuprofen 600 MG Tablet PO ×2 (03:58→17:31)
[2018-09-02] MEDS: Acetaminophen 325 MG Tablet 650 MG PO (09:31)
[2018-09-02] MEDS: Furosemide 40 MG/4 ML Vial IV (09:41)
[2018-09-02] MEDS: Oseltamivir Phosphate 75 MG Capsule PO ×2 (09:44→21:12)
[2018-09-02] MEDS: guaiFENesin 1,200 MG Tablet 1200 MG PO ×2 (09:44→21:12)
--- NOTE | 2018-09-02 09:53 | PCM.PROGNOTE ---
Patient Problems: Active and Suspected Problems Hypoxia (Acute) Sepsis (Acute) Community acquired pneumonia (Acute) Subjective: Chief complaint: Follow-up after admission for viral pneumonia, probable bilateral community acquired pneumonia, influenza A and sepsis. Patient seen and examined. No acute events overnight. She reported continuing very slow improvement of her symptoms, still complaining of cough with minimal sputum and requiring oxygen. Yesterday, she was taken off oxygen and her pulse ox dropped to 80s. She has been afebrile. Her other vital signs are stable. - Physical Exam General: Alert, Oriented x3, Cooperative, No apparent distress HEENT: Atraumatic, PERRLA, EOMI, Normocephalic Oral: Moist Mucosa, No Gingival or Mucosal Lesions/ Ulcerations Neck: Supple, No JVD, Negative Carotid Bruits, Trachea Midline, Thyroid Normal Size and Texture Lungs: No rhonchi, No wheeze, Diminished, Rales, - - Decreased breath sounds bilateral, bilateral basal crackles. Cardiovascular: Regular rate, Regular Rhythm, Normal S1, Normal S2, PMI Normal Abdomen: Bowel Sounds Present, Soft, Non Tender, Non-Distended, No Hepato-splenomegaly Extremities: No clubbing, No cyanosis, No edema Skin: No rashes, No breakdown Lymphatic: No Cervical, Supraclavicular, or Inguinal Adenopathy Neurological: Cranial nerves II-XII grossly intact, Neuro grossly intact Psych/Mental Status: Normal Affect, Appropriate, Alert and oriented to time, place, person, mood and affect Vital Signs Temp Pulse Resp BP Pulse Ox 98.4 F 78 18 147/83 H 95 09/02/18 09:46 09/02/18 09:46 09/02/18 09:46 09/02/18 09:46 09/02/18 09:46 Oxygen Flow Rate (L/min) 2 Oxygen Delivery Method Nasal Cannula Weight: 186 lb Body Mass Index (BMI) 34.0 Intake and Output for Last 24 Hours 08/31/18 09/01/18 09/02/18 23:59 23:59 23:59 Intake Total 1842 / 1842 1420 / 1420 200 / 200 Output Total 300 / 300 Balance 1542 / 1542 1420 / 1420 200 / 200 Microbiology Past 72 Hours 08/29/18 11:55 Gram Stain - Final Sputum, Expectorated/Coughed Respiratory Culture - Final Mixed normal respiratory debi. No Haemophilus, Streptococcus pneumoniae, beta-hemolytic Streptococcus or Staphylococcus aureus isolated. 08/29/18 09:10 Blood Culture - Preliminary Blood Culture (Wb) - Anticubital Left No growth in 48 hours. 08/29/18 09:20 Blood Culture - Preliminary Blood Culture (Wb) - Anticubital Right No growth in 48 hours. 08/30/18 10:55 C. difficile DNA Amplification - Final Stool 08/29/18 14:40 Respiratory Panel (PCR) - Final Mucosa - Nose Influenza A (Subtype H1) Medical Necessity - Tobacco Use Smoking Status: Never smoker Assessment/Plan All Active Problems Hypoxia (Acute) Sepsis (Acute) Community acquired pneumonia (Acute) This is a 52 years old female patient was sent from urgent care to ED for evaluation because she was found to have bilateral pneumonia on chest x-ray and she is being admitted for bilateral community-acquired pneumonia with sepsis as well as hypoxia. #1 Viral pneumonia/probable bilateral lower lobe community acquired pneumonia/sepsis: She completed 3 doses of IV Zithromax, now on day 4 of IV Rocephin. also on Tamiflu. She remained afebrile, other vital signs are stable. Pneumococcal and Legionella antigen are negative. Blood and sputum cultures showed no growth in 48 hours. Respiratory panel for viruses was positive for influenza A subtype H1. Sputum culture revealed normal respiratory debi. Chest x-ray that was done yesterday reviewed again and revealed fluid on the fissure on the right side. There may be some volume overload. Plan: DC IV Rocephin, will give 1 dose of IV Lasix 40 mg x1, wean off oxygen as tolerated, possible DC home tomorrow when she is off oxygen. #2 hypoxia: Secondary to above. Patient reported continued very slow improvement in her symptoms. Today, pulse ox is 95% on 2 L. Continue albuterol every 4 hours. #3 prediabetes: Not on any treatment. Hemoglobin A1c was 6.7. Blood glucose has been in the range of 80s-90s. #4 GERD: She is not on any medications. Denies any complaints. Stable. #5 depression/anxiety: Continue Paxil. #6 DVT prophylaxis: Low-risk patient, no prophylaxis indicated. This note was generated with [employer] software. It may contain incorrect words, spelling, and punctuation that were not noted in checking the note before signing. Code Visit Inpatient E&M: 43485 Subs Hosp L2
[2018-09-02] MEDS: Ceftriaxone 1 GM/50 ML BAG IV (10:05)
[2018-09-02] MEDS: PARoxetine 10 MG Tablet 30 MG PO (17:31)
[2018-09-03] VITALS (11 sets, daily range): BP systolic 131–155; BP diastolic 81–94; PULSE 82–92; RESP 18–21; TEMP 36.9–37; O2SAT 85–94
[2018-09-03] MEDS: DiphenhydrAMINE 25 MG Capsule PO (00:29)
[2018-09-03] MEDS: Albuterol 2.5 MG/3 ML VIAL.NEB. INHALATION ×3 (02:57→11:28)
[2018-09-03] MEDS: 0.9% NaCl Peripheral Flush Adult/Peds IV ×2 (06:43→09:14)
[2018-09-03] MEDS: guaiFENesin 1,200 MG Tablet 1200 MG PO (09:12)
[2018-09-03] MEDS: Ceftriaxone 1 GM/50 ML BAG IV (09:12)
[2018-09-03] MEDS: Oseltamivir Phosphate 75 MG Capsule PO (09:12)
[2018-09-03] MEDS: Ibuprofen 600 MG Tablet PO (09:16)
--- NOTE | 2018-09-03 10:50 | DCINST_ITS ---
- Discharge Diagnoses Current Active Problems: Current Active and Chronic Problems Hypoxia (Acute) Sepsis (Acute) Community acquired pneumonia (Acute) GERD (gastroesophageal reflux disease) (Chronic) Depression (Chronic) Anxiety (Chronic) Prediabetes (Chronic) You will use the following diet at home:: Calorie/Carbohydrate Controlled (specify 1200, 1400, etc) - 1800 ADA diet Your food should be the consistency of: Regular Discharge Activity: May Not Drive - until she sees PCP IN 1-2 WEEKS Weight Bearing Status: Weight bearing as tolerated Call your doctor if you observe: Fever of 101 or Higher, Coldness, Increased Pain, Numbness or Tingling, Inability to have a bowel movement Allergies/Adverse Reactions: Allergies No Known Allergies Allergy (Verified 08/29/18 08:43) Medications to take at Discharge Paroxetine HCl [Paxil] 30 mg PO DAILY 08/29/18 Benzonatate [Tessalon Perle] 100 mg PO TID PRN PRN #14 capsule 09/03/18 Guaifenesin [Mucinex] 1,200 mg PO BID #14 tablet 09/03/18 Oseltamivir Phosphate [Tamiflu] 75 mg PO X1 #1 capsule 09/03/18 The following prescriptions were given: Benzonatate [Tessalon Perle] 100 mg PO TID PRN PRN #14 capsule PRN Reason: Cough Oseltamivir Phosphate [Tamiflu] 75 mg PO X1 #1 capsule Guaifenesin [Mucinex] 1,200 mg PO BID #14 tablet Primary Care Physician: Will Miles PA [Primary Care Provider] - Please follow up with your Primary Care Physician in: IN 1-2 WEEKS Test Results: Test results from this visit will be discussed in further detail at your follow- up appointment, if applicable. Please Follow Up With: Chuck Carrizales MD When: IN 4 weeks for PFT and severe pneumonia with hypoxia
--- NOTE | 2018-09-03 10:50 | PCM.DC.SUM ---
Discharge Date and Diagnosis Date of Admission: 08/29/18 Date of Discharge: 09/03/18 - Primary Discharge Diagnosis Active and Suspected Problems Hypoxia (Acute) Sepsis (Acute) Community acquired pneumonia (Acute) - Secondary Discharge Diagnosis Chronic Problems GERD (gastroesophageal reflux disease) (Chronic) Depression (Chronic) Anxiety (Chronic) Prediabetes (Chronic) Hospital Course and Treatment Summary of Care Provided: [] This is a 52 years old female patient was sent from urgent care to ED for evaluation because she was found to have bilateral pneumonia on chest x-ray and she is being admitted for bilateral community-acquired pneumonia with sepsis as well as hypoxia. #1 Viral pneumonia with probable secondary bacterial bilateral lower lobe community acquired pneumonia/sepsis: She completed 3 doses of IV Zithromax, and completed today 5 days of IV Rocephin. also on Tamiflu, last dose tonight. She remained afebrile, other vital signs are stable except hypoxia. Pneumococcal and Legionella antigen are negative. Blood and sputum cultures showed no growth in 48 hours. Respiratory panel for viruses was positive for influenza A subtype H1. Sputum culture revealed normal respiratory debi. Chest x-ray on 09/01/2018 reviewed again and revealed fluid on the fissure on the right side. There may be some volume overload and patient was given Lasix yesterday. #2 Acute hypoxic respiratory failure secondary to multilobar bilateral lower lobes community-acquired pneumonia. Walking pulse oximetry was done. Patient pulse ox 92% on room air at rest, dropped to 85% on ambulation on room air. 91% on 1 L of oxygen on ambulation. Patient requires home oxygen with portability for ambulation in home in the community. #3 prediabetes: Not on any treatment. Hemoglobin A1c was 6.7. Blood glucose has been in the range of 80s-90s. #4 GERD: She is not on any medications. Denies any complaints. Stable. #5 depression/anxiety: Continue Paxil. #6 DVT prophylaxis: Low-risk patient, no prophylaxis indicated. Hospital course, discharge plan was discussed with the patient. Patient requested to follow-up with the human service technician and advised PFT in 4-6 weeks Discharge medication reconciliation done. Discharge follow-up instructions completed. Discharge process discussed with the patient. Total time spent, exact 35 minutes on discharge meds reconciliation, examination, review of imaging and blood test and discussion with the patient on follow-up instructions. Subjective: Seen and examined. Vital signs are stable. Patient pulse ox 92% on 1 L of oxygen. - Physical Exam General: Alert, Oriented x3, Cooperative HEENT: Atraumatic, PERRLA, EOMI, Normocephalic Neck: Supple, No JVD, Negative Carotid Bruits Lungs: Diminished - Air entry diminished in the posterior half of both lungs., Rales - Occasional coarse rales present in bilateral lung bases, - - Mild hypoxia, exacerbated on ambulation Cardiovascular: Regular rate, Regular Rhythm, Normal S1, Normal S2, No murmurs Abdomen: Bowel Sounds Present, Soft, Non Tender, Non-Distended Extremities: No edema, Capillary Refill Less than 3 Seconds Skin: No rashes, No breakdown Musculoskeletal: No Tenderness to Palpation of Joints or Extremities, Arthritic Changes Neurological: Cranial nerves II-XII grossly intact Psych/Mental Status: Normal Affect, Appropriate Vital Signs Temp Pulse Resp BP Pulse Ox 98.6 F 92 18 155/94 H 92 09/03/18 08:50 09/03/18 08:50 09/03/18 08:50 09/03/18 08:50 09/03/18 08:50 Oxygen Flow Rate (L/min) 1 Oxygen Delivery Method Nasal Cannula Weight: 185 lb 15.993 oz Body Mass Index (BMI) 34.0 Intake and Output for Last 24 Hours 09/01/18 09/02/18 09/03/18 23:59 23:59 23:59 Intake Total 1420 / 1420 1020 / 1020 500 / 500 Output Total 4 / 4 Balance 1420 / 1420 1016 / 1016 500 / 500 Microbiology Past 72 Hours 08/29/18 09:10 Blood Culture - Final Blood Culture (Wb) - Anticubital Left No growth in 5 days. 08/29/18 09:20 Blood Culture - Final Blood Culture (Wb) - Anticubital Right No growth in 5 days. 08/29/18 11:55 Gram Stain - Final Sputum, Expectorated/Coughed Respiratory Culture - Final Mixed normal respiratory debi. No Haemophilus, Streptococcus pneumoniae, beta-hemolytic Streptococcus or Staphylococcus aureus isolated. Discharge Activity: May Not Drive - until she sees PCP IN 1-2 WEEKS Weight Bearing Status: Weight bearing as tolerated Call your doctor if you observe: Fever of 101 or Higher, Coldness, Increased Pain, Numbness or Tingling, Inability to have a bowel movement Home Medications: Medications to take at Discharge Paroxetine HCl [Paxil] 30 mg PO DAILY 08/29/18 Benzonatate [Tessalon Perle] 100 mg PO TID PRN PRN #14 capsule 09/03/18 Guaifenesin [Mucinex] 1,200 mg PO BID #14 tablet 09/03/18 Oseltamivir Phosphate [Tamiflu] 75 mg PO X1 #1 capsule 09/03/18 Following Prescrptions Were Given to Patient: Benzonatate [Tessalon Perle] 100 mg PO TID PRN PRN #14 capsule PRN Reason: Cough Oseltamivir Phosphate [Tamiflu] 75 mg PO X1 #1 capsule Guaifenesin [Mucinex] 1,200 mg PO BID #14 tablet Primary Care Physician: Will Miles PA [Primary Care Provider] - Please follow up with your Primary Care Physician in: IN 1-2 WEEKS Please Follow Up With: Chuck Carrizales MD When: IN 4 weeks for PFT and severe pneumonia with hypoxia Medical Necessity - Tobacco Use Smoking Status: Never smoker Meaningful Use Info Meaningful Use Diagnoses (Choose all that apply): None applicable Code Visit Inpatient E&M: 43449 Disch Hosp
--- NOTE | 2018-09-03 12:00 | CASEMGMT ---
IDALIA RICHARDS received updated from floor nurse that patient will require home oxygen at discharge. IDALIA RICHARDS discussed need for home oxygen with patient and DME companies. Patient is agreeable to [employer]. IDALIA RICHARDS received script from hospitalist and referral sent to [facility] [place] requesting portable tank be delivered to patient's room prior to discharge. IDALIA RICHARDS updated patient that referral had been made to [facility] [place]. IDALIA RICHARDS will continue to follow this patient and plan for a safe discharge.
== END 2018-09-03 15:26 | disposition home or self-care (01) | DRG 871 ==
LOC: ED 09:07 → MS2 11:07 → MS3 08-31 14:47
PROVIDERS: Admitting Provider Hospitalist; Emergency Provider Emergency Medicine; Family Provider Physician Assistant; PCP Physician Assistant; Visit Provider Internal Medicine
DX: A41.9 Sepsis, unspecified organism (principal); J12.89 Other viral pneumonia; J96.01 Acute respiratory failure with hypoxia; J10.01 Influenza due to other identified influenza virus with the same other identified influenza virus pneumonia; J15.9 Unspecified bacterial pneumonia; F32.9 Major depressive disorder, single episode, unspecified; R73.03 Prediabetes; F41.9 Anxiety disorder, unspecified; K21.9 Gastro-esophageal reflux disease without esophagitis
CPT/HCPCS: 36415; 71046; 80048; 81002; 82962; 83036; 83605; 85025; 87040; 87070; 87205; 87449; 87493; 87633; 94640; 94667; 94668; 99285; J7030; J7050; A4216; J1940; J2405

== ENCOUNTER → 2018-10-11 09:59 | Outpatient (CLI) | payer BC, SELFPAY ==
[2018-10-02 08:19] VITALS: BMI 33.6
--- NOTE | 2018-10-12 10:07 | PFTCOMP_ITS ---
COMPLETE PULMONARY FUNCTION TEST INTERPRETATION Brief HPI: Patient is a 52 year old female, currently under the care of myself, who presents to [facility] for complete pulmonary function tests secondary to diagnosis of dyspnea with hypoxia. Respiratory therapist reports good effort and reproducible results. Interpretation: Forced expiration spirometry shows a mild large airways obstructive ventilatory defect with an FEV1 of 96% predicted. There is some improvement following bronchodilator, but this does not reach significance by strict ATS criteria. Spirograms are of good quality and plateau slowly, indicating slowly emptying areas of the lungs. The respiratory flow volume loop shows decreased expiratory flow rates at high lung volumes consistent with small airways obstruction. Lung volumes by body plethysmography show a normal total lung capacity at 4.02 L, 86% predicted. All other lung volumes are within normal limits. Diffusion capacity by carbon monoxide is normal at 91% predicted. The airway resistance is normal. No previous pulmonary function tests were available for review. Impression: Irreversible mild large airways obstructive ventilatory defect. There was improvement following bronchodilators, but this barely missed clinical significance by ATS criteria.
== END ==
PROVIDERS: Family Provider Physician Assistant; PCP Physician Assistant; Referring Provider Internal Medicine Critical Care Medicine; Visit Provider Internal Medicine Critical Care Medicine
DX: R06.09 Other forms of dyspnea (principal); R09.02 Hypoxemia
CPT/HCPCS: 94060; 94726; 94729

== ENCOUNTER → 2018-10-22 23:15 | Outpatient (CLI) | payer BC, SELFPAY ==
[2018-10-02 08:19] VITALS: BMI 33.6
== END ==
PROVIDERS: Family Provider Physician Assistant; PCP Physician Assistant; Referring Provider Internal Medicine Critical Care Medicine; Visit Provider Internal Medicine Critical Care Medicine
DX: G47.10 Hypersomnia, unspecified (principal); R09.02 Hypoxemia; R06.09 Other forms of dyspnea
CPT/HCPCS: 95810

== ENCOUNTER → 2018-11-07 16:39 | Outpatient (CLI) | payer BC, SELFPAY ==
[2018-11-07 11:48] VITALS: BMI 33.6
[2018-11-10 17:14] LABS: HPV APTIMA, High Risk Negative (Negative)
== END ==
PROVIDERS: Family Provider Internal Medicine; PCP Internal Medicine; Referring Provider Obstetrics & Gynecology; Visit Provider Obstetrics & Gynecology
DX: Z12.4 Encounter for screening for malignant neoplasm of cervix (principal)
CPT/HCPCS: 87624; 88175; G0145

== ENCOUNTER → 2018-11-07 20:10 | Outpatient (CLI) | payer BC, SELFPAY ==
[2018-10-02 08:19] VITALS: BMI 33.6
== END ==
PROVIDERS: Family Provider Internal Medicine; PCP Internal Medicine; Referring Provider Nurse Practitioner Acute Care; Visit Provider Nurse Practitioner Acute Care
DX: G47.33 Obstructive sleep apnea (adult) (pediatric) (principal)
CPT/HCPCS: 95811

== ENCOUNTER → 2018-11-19 14:01 | Outpatient (CLI) | payer BC, SELFPAY ==
[2018-11-07 11:48] VITALS: BMI 33.6
== END ==
PROVIDERS: Family Provider Internal Medicine; PCP Internal Medicine; Referring Provider Nurse Practitioner Acute Care; Visit Provider Nurse Practitioner Acute Care
DX: G47.33 Obstructive sleep apnea (adult) (pediatric) (principal)

== ENCOUNTER → 2019-08-09 08:17 | Outpatient (CLI) | payer BC, SELFPAY ==
[2019-04-17 08:17] VITALS: BMI 33.3
--- NOTE | 2019-08-09 08:17 | US_ITS ---
STUDY: ULTRASOUND OF THE FEMALE PELVIS - COMPLETE REASON FOR EXAM: Female, 53 years old. abnl ut bleeding LMP: 07/15/2019. TECHNIQUE: Transabdominal and Transvaginal TECHNICAL QUALITY: Adequate. COMPARISON: None. FINDINGS: The uterus is retroverted and is in a midline position. The uterus measures 7.8 x 5.3 x 5.5 cm. There is a Nabothian cyst of the cervix. The endometrium measures 4.0 mm in thickness, and is hyperechoic. There is no demonstrated endometrial mass. At the level of the lower aspect of the uterine body there is a round heterogeneous structure compatible with a uterine fibroid measuring 3.3 x 2.8 x 2.1 cm. A second structure seen within the mid upper portion of the uterine body measuring 1.6 x 1.2 x 0.8 cm. I.U.D. - The patient does not have an I.U.D. The right ovary is visualized. The right ovary measures 2.1 x 2.0 x 1.3 cm. There is no right ovarian cyst or ovarian mass. There is no visualized right adnexal mass or complex lesion. There is normal arterial and normal venous vascularity. The left ovary is visualized. The left ovary measures 2.3 x 1.9 x 1.7 cm. There is no left ovarian cyst or ovarian mass. There is no visualized left adnexal mass or complex lesion. There is normal arterial and normal venous vascularity. There is no fluid in the cul-de-sac. The volume of the bladder was 345 ml. US/Transvaginal Non- IMPRESSION: Uterine fibroids as described above. Retroverted uterus, remainder of the pelvic ultrasound unremarkable. Electronically Signed: Emelina Saavedra MD at 2:51 EST , Service support ,
--- NOTE | 2019-08-09 08:17 | US_ITS ---
STUDY: ULTRASOUND OF THE FEMALE PELVIS - COMPLETE REASON FOR EXAM: Female, 53 years old. abnl ut bleeding LMP: 07/15/2019. TECHNIQUE: Transabdominal and Transvaginal TECHNICAL QUALITY: Adequate. COMPARISON: None. FINDINGS: The uterus is retroverted and is in a midline position. The uterus measures 7.8 x 5.3 x 5.5 cm. There is a Nabothian cyst of the cervix. The endometrium measures 4.0 mm in thickness, and is hyperechoic. There is no demonstrated endometrial mass. At the level of the lower aspect of the uterine body there is a round heterogeneous structure compatible with a uterine fibroid measuring 3.3 x 2.8 x 2.1 cm. A second structure seen within the mid upper portion of the uterine body measuring 1.6 x 1.2 x 0.8 cm. I.U.D. - The patient does not have an I.U.D. The right ovary is visualized. The right ovary measures 2.1 x 2.0 x 1.3 cm. There is no right ovarian cyst or ovarian mass. There is no visualized right adnexal mass or complex lesion. There is normal arterial and normal venous vascularity. The left ovary is visualized. The left ovary measures 2.3 x 1.9 x 1.7 cm. There is no left ovarian cyst or ovarian mass. There is no visualized left adnexal mass or complex lesion. There is normal arterial and normal venous vascularity. There is no fluid in the cul-de-sac. The volume of the bladder was 345 ml. US/Pelvic (Non ) IMPRESSION: Uterine fibroids as described above. Retroverted uterus, remainder of the pelvic ultrasound unremarkable. Electronically Signed: Emelina Saavedra MD at 2:51 EST , Service support ,
--- NOTE | 2019-08-09 09:09 | BI_ITS ---
MAMMOGRAPHY - BILATERAL SCREENING REASON FOR EXAM: Female, 53 years old. Routine annual screening examination. PERTINENT HISTORY: Non-contributory. TECHNIQUE: Digital bilateral breast ariella (3D mammographic acquisition) in the CC and MLO projections. 2-D mediolateral oblique (MLO) and craniocaudad (CC) views of both breasts were obtained. CAD: Full Field Digital Mammography with Computer Added Detection was performed. COMPARISON: Comparison is made with prior study in July 02, 2018 and April 13, 2017. FINDINGS: Breast Composition: The breasts are heterogeneously dense, which may obscure small masses. There are no dominant masses or suspicious calcifications. Stable benign-appearing bilateral axillary lymph nodes. No other significant abnormalities are identified. There has been no significant change since the prior study. BI/SCREEN MAMM (CAD) W/ARIELLA BILAT IMPRESSION: Stable bilateral screening mammogram. Yearly follow-up mammogram recommended. (A) ASSESSMENT CATEGORY: BIRADS Category 2: Benign. A letter regarding these results will be sent to the patient by the facility within 30 days. Approximately 10% of breast cancers are not detected by mammography. A normal mammogram should not delay biopsy of a clinically suspicious abnormality. [id number] Electronically Signed: Evens Streeter, at 10:31 EST , Service support ,
[2019-08-09 09:42] LABS: Absolute Lymphocyte Count 2.63 X10^3/uL (0.83-4.51); Absolute Neutrophil Count 6.1 X10^3/uL (2.0-7.7); Basophil# 0.06 X10^3/uL; Basophil% 0.6 % (0-1); Eosinophil# 0.13 X10^3/uL; Eosinophils% 1.4 % (0-5); Hematocrit 43.2 % (37-47); Hemoglobin 14.1 g/dL (12.0-15.0); Lymphocyte # 2.63 X10^3/ul (4.0); Lymphocyte % 27.5 % (19-41); Mean Corp Hgb Conc 32.6 g/dL (32-36); Mean Corpuscular Hgb 31.4 pg (27.0-32.0); Mean Corpuscular Volume 96.2 fL (81-99); Mean Platelet Vol. 9.3 fl (6.2-12.0); Monocyte# 0.55 X10^3/uL; Monocyte% 5.8 % (0-10); NRBC Flagged by Analyzer 0 % (0-5); Neutrophil # 6.14 X10^3/uL (2.7-7.7); Neutrophil % 64.3 % (47-70); Platelet Count 349 K/mm3 (150-450); RBC Distribution Width CV 13.3 % (11.6-14.6); RBC Distribution Width SD 47.4 fl (35.1-43.9); Red Blood Count 4.49 M/mm3 (4.2-5.4); White Blood Count 9.6 K/mm3 (4.4-11.0)
[2019-08-09 10:03] LABS: Thyroid Stim Hormone (TSH) 1.24 uIU/mL (0.358-3.74)
== END ==
LOC: OPUS 09:03 → PAVLAB 09:26
PROVIDERS: Family Provider Physician Assistant; PCP Physician Assistant; Referring Provider Obstetrics & Gynecology; Visit Provider Obstetrics & Gynecology
DX: N92.0 Excessive and frequent menstruation with regular cycle (principal); Z12.31 Encounter for screening mammogram for malignant neoplasm of breast
CPT/HCPCS: 36415; 76830; 76856; 77063; 77067; 84443; 85025

== ENCOUNTER → 2020-08-10 09:52 | Outpatient (CLI) | payer BC, SELFPAY ==
[2020-01-02 15:28] VITALS: BMI 32.6
[2020-03-31 10:25] VITALS: BMI 32.6
--- NOTE | 2020-08-10 09:53 | BI_ITS ---
MAMMOGRAPHY - BILATERAL SCREENING REASON FOR EXAM: Female, 54 years old. Routine annual screening examination. PERTINENT HISTORY: Non-contributory. TECHNIQUE: Digital bilateral breast ariella (3D mammographic acquisition) in the CC and MLO projections. 2-D mediolateral oblique (MLO) and craniocaudad (CC) views of both breasts were obtained. CAD: Full Field Digital Mammography with Computer Added Detection was performed. COMPARISON: Comparison is made with prior study dated 08/09/2019 and 07/02/2018. FINDINGS: Breast Composition: The breasts are heterogeneously dense, which may obscure small masses. There are no dominant masses or suspicious calcifications. Stable benign appearing bilateral axillary lymph nodes. No other significant abnormalities are identified. There has been no significant change since the prior study. BI/SCREEN MAMM (CAD) W/ARIELLA BILAT IMPRESSION: Stable bilateral screening mammogram. Yearly follow-up mammogram recommended. (A) ASSESSMENT CATEGORY: BIRADS Category 2: Benign. A letter regarding these results will be sent to the patient by the facility within 30 days. Approximately 10% of breast cancers are not detected by mammography. A normal mammogram should not delay biopsy of a clinically suspicious abnormality. [id number] Electronically Signed: Evens Streeter, at 10:31 EST , Service support ,
== END ==
PROVIDERS: PCP Physician Assistant; Referring Provider Obstetrics & Gynecology; Visit Provider Obstetrics & Gynecology
DX: Z12.31 Encounter for screening mammogram for malignant neoplasm of breast (principal)
CPT/HCPCS: 77063; 77067

== ENCOUNTER 2021-08-30 13:13 | Outpatient (CLI) | payer BC, SELFPAY ==
--- NOTE | 2021-08-30 13:16 | BI_ITS ---
MAMMOGRAPHY - BILATERAL SCREENING REASON FOR EXAM: Female, 55 years old. Routine annual screening examination. PERTINENT HISTORY: Non-contributory. TECHNIQUE: Digital bilateral breast ariella (3D mammographic acquisition) in the CC and MLO projections. 2-D mediolateral oblique (MLO) and craniocaudad (CC) views of both breasts were obtained. CAD: Full Field Digital Mammography with Computer Added Detection was performed. COMPARISON: Comparison is made with prior study dated 08/10/2020 and 08/09/2019. FINDINGS: Breast Composition: The breasts are heterogeneously dense, which may obscure small masses. There are no dominant masses or suspicious calcifications. Stable benign-appearing bilateral axillary lymph nodes. No other significant abnormalities are identified. There has been no significant change since the prior study. BI/SCRN MAMM (CAD)W/ARIELLA BILAT IMPRESSION: Stable bilateral screening mammogram. Yearly follow-up mammogram recommended. (A) ASSESSMENT CATEGORY: BIRADS Category 2: Benign. A letter regarding these results will be sent to the patient by the facility within 30 days. Approximately 10% of breast cancers are not detected by mammography. A normal mammogram should not delay biopsy of a clinically suspicious abnormality. [id number] Electronically Signed: Evens Streeter MD at 14:05 EST , Service support ,
== END 2021-08-30 23:59 | disposition short-term general hospital (02) ==
LOC: OPBI 13:14
PROVIDERS: PCP Physician Assistant; Visit Provider Obstetrics & Gynecology
DX: Z12.31 Encounter for screening mammogram for malignant neoplasm of breast (principal)
CPT/HCPCS: 77063; 77067

== ENCOUNTER → 2022-10-26 | Outpatient (CLI) | payer BC, SELFPAY ==
--- NOTE | 2022-10-26 12:17 | BI_ITS ---
MAMMOGRAPHY - BILATERAL SCREENING REASON FOR EXAM: Female, 57 years old. Routine annual screening examination. PERTINENT HISTORY: Non-contributory. TECHNIQUE: Digital bilateral breast ariella (3D mammographic acquisition) in the CC and MLO projections. 2-D mediolateral oblique (MLO) and craniocaudad (CC) views of both breasts were obtained. CAD: Full Field Digital Mammography with Computer Added Detection was performed. COMPARISON: Comparison is made with prior study dated August 30, 2021 and August 10, 2020. FINDINGS: Breast Composition: The breasts are heterogeneously dense, which may obscure small masses. There are no dominant masses or suspicious calcifications. Stable small benign-appearing bilateral axillary lymph nodes. No other significant abnormalities are identified. There has been no significant change since the prior study. BI/SCRN MAMM (CAD)W/ARIELLA BILAT IMPRESSION: Stable bilateral screening mammogram. Yearly follow-up mammogram recommended. (A) ASSESSMENT CATEGORY: BIRADS Category 2: Benign. A letter regarding these results will be sent to the patient by the facility within 30 days. Approximately 10% of breast cancers are not detected by mammography. A normal mammogram should not delay biopsy of a clinically suspicious abnormality. [id number] Electronically Signed: Evens Streeter MD at 13:56 EST ,
== END | disposition home or self-care (01) ==
LOC: OPBI 12:15
PROVIDERS: PCP Physician Assistant; Visit Provider Obstetrics & Gynecology
DX: Z12.31 Encounter for screening mammogram for malignant neoplasm of breast (principal)
CPT/HCPCS: 77063; 77067

== ENCOUNTER → 2023-04-11 | Outpatient (CLI) | payer BC, SELFPAY ==
[2023-04-15 14:12] LABS: HPV APTIMA, High Risk Negative (Negative)
== END | disposition home or self-care (01) ==
LOC: OPBI 16:49
PROVIDERS: PCP Physician Assistant; Referring Provider Obstetrics & Gynecology; Visit Provider Obstetrics & Gynecology
DX: Z12.4 Encounter for screening for malignant neoplasm of cervix (principal)
CPT/HCPCS: 87624; 88175; G0145

== ENCOUNTER → 2023-08-29 | Outpatient (CLI) | payer BC, SELFPAY ==
--- OUTSIDE RECORDS SUMMARY | 2023-08-29 11:12 | XMS RPT_ITS | CCD ---
Author Name Unknown Address [address] [place] [address] Organization [facility] Care Team Providers Care Blue Line Trimmer Name Role Phone Will Miles PA-C Primary Care Provider Will MILES Primary Care Unavailable MILESWill Referring Unavailable MILES, Will LEYVA Primary Care Unavailable MILESWill Attending Unavailable MILES, Will LEYVA Primary Care Unavailable MILES, Will LEYVA Referring Unavailable MILES, Will LEYVA Primary Care Unavailable MILESWill Attending Unavailable MILESWill Referring Unavailable MILES, Will LEYVA Referring Unavailable MILES, M LINDA Primary Care Unavailable MILES, Will LEYVA Attending Unavailable MILES, M LINDA Primary Care Unavailable MILES, M LINDA Primary Care Unavailable MILES, Will LEYVA Primary Care Unavailable MILESWill Referring Unavailable MILES, Will LEYVA Primary Care Unavailable MILES, Will PATTERSONLINDA Referring Unavailable Medications Current Medications Medication Drug Class(es) Dates Sig (Normalized) Sig (Original) doxycycline monohydrate 100 mg oral tablet (1 source) Tetracycline-cla ss Drug Start: 12-14-2021 End: 12-24-2021 take 1 tablet by mouth twice daily doxycycline monohydrate 100 mg tablet Indications: Sinobronchitis Take 1 tablet by mouth twice daily for 10 days. 20 tablet 0 12/14/2021 12/24/2021 Active Completed/Discontinued Medications Medication Drug Class(es) Dates Sig (Normalized) Sig (Original) acetaminophen 325 mg oral tablet (9 sources) take 2 tablets by mouth every six hours as needed acetaminophen (TYLENOL) 325 mg tablet Take 650 mg by mouth every 6 hours as needed. 0 Active Problems Active Problems Problem Classification Problem Date Documented Date Episodic/Chronic Anxiety disorders (14 sources) Mixed anxiety and depressive disorder; Translations: [Anxiety disorder, unspecified] Onset: 06-13-2012 06-13-2012 Chronic Disorders of lipid metabolism (14 sources) Hyperlipidemia; Translations: [Hyperlipidemia, unspecified] Onset: 09-23-2016 09-23-2016 Chronic Esophageal disorders (13 sources) Gastroesophageal reflux disease; Translations: [Gastro-esophageal reflux disease without esophagitis] Onset: 02-12-2015 02-12-2015 Chronic Essential hypertension (11 sources) Essential hypertension; Translations: [Essential (primary) hypertension] Onset: 12-15-2021 12-15-2021 Chronic Immunizations and screening for infectious disease (1 source) Needs influenza immunization; Translations: [Encounter for immunization] Episodic Inflammation; infection of eye (except that caused by tuberculosis or sexually transmitteddisease) (1 source) Conjunctivitis of left eye; Translations: [Unspecified conjunctivitis] Episodic Mood disorders (1 source) Mood disorders; Translations: [Anxiety and depression] Onset: 06-13-2012 Other connective tissue disease (1 source) History of right total knee replacement; Translations: [Presence of right artificial knee joint] 06-11-2023 Chronic Other connective tissue disease (1 source) Presence of right artificial knee joint; Translations: [History of total knee arthroplasty, right] Onset: 06-12-2023 Chronic Other connective tissue disease (1 source) Pain in buttock; Translations: [Myalgia, other site] 06-12-2023 Episodic Other connective tissue disease (1 source) Myalgia, other site; Translations: [Right buttock pain] Onset: 06-12-2023 Episodic Other upper respiratory infections (1 source) Chronic sinusitis; Translations: [Chronic sinusitis, unspecified] Chronic Other upper respiratory infections (1 source) Sore throat symptom; Translations: [Acute pharyngitis, unspecified] Episodic Viral infection (1 source) Viral disease; Translations: [Viral infection, unspecified] Episodic Past or Other Problems Problem Classification Problem Date Documented Da te Episodic/Chronic Benign neoplasm of uterus (10 sources) Intramural leiomyoma of uterus; Translations: [Intramural leiomyoma of uterus] Onset: 08-12-2019 08-12-2019 Episodic Diabetes mellitus without complication (13 sources) Impaired fasting glycemia; Translations: [Impaired fasting glucose] Onset: 02-12-2015 02-12-2015 Episodic Other non-epithelial cancer of skin (10 sources) Squamous cell carcinoma of skin of face; Translations: [Squamous cell carcinoma of skin of unspecified parts of face] Onset: 09-10-2018 09-10-2018 Episodic Other non-traumatic joint disorders (10 sources) Pain in right knee; Translations: [Pain in joint, lower leg] Onset: 09-23-2016 07-09-2019 Episodic Other screening for suspected conditions (not mental disorders or infectious disease) (10 sources) Patient encounter status; Translations: [Encounter for screening for malignant neoplasm of intestinal tract, unspecified] Onset: 10-14-2016 10-14-2016 Episodic Results Test Name Value Interpretation Reference Range Facil ity Vital Signs Date Time Vital Sign Value Performing Clinician Alex valencia 06-12-2023 09:14-0400 Body weight 83.92 kg NA Miles PA-C Work Phone: [facility] 06-12-2023 09:14-0400 Diastolic blood pressure 76 mm[Hg] NA Miles PA-C Work Phone: [facility] 06-12-2023 09:14-0400 Heart rate 67 /min NA Miles PA-C Work Phone: [facility] 06-12-2023 09:14-0400 Respiratory rate 16 /min NA Miles PA-C Work Phone: [facility] 06-12-2023 09:14-0400 SaO2% (BldA) [Mass fraction] 98 % NA Miles PA-C Work Phone: [facility] 06-12-2023 09:14-0400 Systolic blood pressure 128 mm[Hg] NA Miles PA-C Work Phone: [facility] 12-19-2022 09:27-0400 Body weight 84.37 kg NA Miles PA-C Work Phone: [facility] 12-19-2022 09:27-0400 Diastolic blood pressure 78 mm[Hg] NA Miles PA-C Work Phone: [facility] 12-19-2022 09:27-0400 Heart rate 74 /min NA Miles PA-C Work Phone: [facility] 12-19-2022 09:27-0400 SaO2% (BldA) [Mass fraction] 98 % NA Miles PA-C Work Phone: [facility] 12-19-2022 09:27-0400 Systolic blood pressure 120 mm[Hg] NA Miles PA-C Work Phone: [facility] 06-17-2022 08:49-0400 Body weight 83.01 kg NA Miles PA-C Work Phone: [facility] 06-17-2022 08:49-0400 Diastolic blood pressure 76 mm[Hg] NA Miles PA-C Work Phone: [facility] 06-17-2022 08:49-0400 Heart rate 59 /min NA Miles PA-C Work Phone: [facility] 06-17-2022 08:49-0400 SaO2% (BldA) [Mass fraction] 97 % NA Miles PA-C Work Phone: [facility] 06-17-2022 08:49-0400 Systolic blood pressure 128 mm[Hg] NA Miles PA-C Work Phone: [facility] 12-14-2021 13:42-0400 Body temperature 98.49 [degF] Moody Quiroz TABLE LEVER OPERATOR.ORE CRUSHING DUST COLLECTOR Work Phone: [facility] 12-14-2021 13:42-0400 Body weight 83.46 kg Moody Quiroz TABLE LEVER OPERATOR.ORE CRUSHING DUST COLLECTOR Work Phone: [facility] 12-14-2021 13:42-0400 Diastolic blood pressure 100 mm[Hg] Moody Richie TABLE LEVER OPERATOR.ORE CRUSHING DUST COLLECTOR Work Phone: [facility] 12-14-2021 13:42-0400 Heart rate 80 /min Moody Richie TABLE LEVER OPERATOR.ORE CRUSHING DUST COLLECTOR Work Phone: [facility] 12-14-2021 13:42-0400 Respiratory rate 16 /min Moody Richie TABLE LEVER OPERATOR.ORE CRUSHING DUST COLLECTOR Work Phone: [facility] 12-14-2021 13:42-0400 SaO2% (BldA) [Mass fraction] 97 % Moody Quiroz TABLE LEVER OPERATOR.ORE CRUSHING DUST COLLECTOR Work Phone: [facility] 12-14-2021 13:42-0400 Systolic blood pressure 162 mm[Hg] Moody Quiroz TABLE LEVER OPERATOR.ORE CRUSHING DUST COLLECTOR Work Phone: [facility] 12-10-2021 09:47-0400 Body temperature 98.91 [degF] Moody Quiroz TABLE LEVER OPERATOR.ORE CRUSHING DUST COLLECTOR Work Phone: [facility] 12-10-2021 09:47-0400 Body weight 84.19 kg Moody Quiroz TABLE LEVER OPERATOR.ORE CRUSHING DUST COLLECTOR Work Phone: [facility] 12-10-2021 09:47-0400 Diastolic blood pressure 82 mm[Hg] Moody Quiroz TABLE LEVER OPERATOR.ORE CRUSHING DUST COLLECTOR Work Phone: [facility] 12-10-2021 09:47-0400 Heart rate 77 /min Moody Quiroz TABLE LEVER OPERATOR.ORE CRUSHING DUST COLLECTOR Work Phone: [facility] 12-10-2021 09:47-0400 Respiratory rate 18 /min Moody Quiroz TABLE LEVER OPERATOR.ORE CRUSHING DUST COLLECTOR Work Phone: [facility] 12-10-2021 09:47-0400 SaO2% (BldA) [Mass fraction] 97 % Moody Quiroz TABLE LEVER OPERATOR.ORE CRUSHING DUST COLLECTOR Work Phone: [facility] 12-10-2021 09:47-0400 Systolic blood pressure 142 mm[Hg] Moody Quiroz TABLE LEVER OPERATOR.ORE CRUSHING DUST COLLECTOR Work Phone: [facility] Encounters Encounter Date Encounter Type Care Provider Facility Start: 06-12-2023 End: 06-12-2023 ambulatory Will MILES Facility:[facility] Start: 06-12-2023 End: 06-12-2023 Patient encounter procedure Will Miles PA-C Work Phone: [facility] Procedures Date Procedure Procedure Detail Performing Clinician Start: 12-19-2022 Lipid 1996 panel - S rosetta or Plasma LANDRY Miles PA-C Work Phone: Start: 06-17-2022 INFLUENZA VACCINE QUADRIVALENT 6 MO - 64 YRS IM Will Leyva Jd SNEED Work Phone: Start: 12-10-2021 STREP A MOLECULAR (POC) [facility] Provider Start: 08-30-2021 Mammography Moody obrien APRN.ORE CRUSHING DUST COLLECTOR Work Phone: Start: 11-11-2016 Colonoscopy Moody obrien TABLE LEVER OPERATOR.ORE CRUSHING DUST COLLECTOR Work Phone: Plan of Treatment Date Care Activity Detail Author Start: 12-20-2027 Lipid 1996 panel - S rosetta or Plasma Lipid Screening [facility] Start: 06-17-2027 LIPID SCREEN LIPID SCREEN [facility] Start: 12-10-2026 LIPID SCREEN LIPID SCREEN [facility] Start: 11-11-2026 Colonoscopy COLONOSCOPY [facility] Start: 11-11-2026 COLORECTAL CANCER SCREENING COLORECTAL CANCER SCREENING [facility] Start: 12-19-2025 DIABETES SCREEN DIABETES SCREEN [facility] Start: 12-19-2025 Diabetes Screening Diabetes Screenin g [facility] Start: 06-17-2025 DIABETES SCREEN DIABETES SCREEN [facility] Start: 12-10-2024 DIABETES SCREEN DIABETES SCREEN [facility] Start: 06-12-2024 Annual PCP Team Advice Line Rn didier Disease Visit Annual PCP Team Chronic Disease Visit [facility] Start: 06-12-2024 BP Controlled (<130/80) BP Controlle d (<130/80) [facility] Start: 12-20-2023 ANNUAL PCP TEAM ADVISORY APPLICATION DEVELOPER DIDIER DISEASE VISIT ANNUAL PCP TEAM CHRONIC DISEASE VISIT [facility] Start: 12-20-2023 BP CONTROLLED (<130/80) BP CONTROLLE D (<130/80) [facility] Start: 12-20-2023 COVID-19 VACCINE (3 - Booster for Pfizer series) COVID-19 VACCINE (3 - Booster for Pfizer series) [facility] Immunizations Immunization Date Immunization Notes Care Provider Fa sergioty 06-17-2022 influenza, injectabl e, quadrivalent, contains preservative NA Jd SNEED Work Phone: [facility] 06-17-2022 influenza virus vaccine, unspecified formulation LANDRY Miles PA-C Work Phone: [facility] 05-05-2020 influenza, injectabl e, quadrivalent, contains preservative Moody Richie TABLE LEVER OPERATOR.ORE CRUSHING DUST COLLECTOR Work Phone: [facility] Work Phone: 07-08-2019 influenza, injectabl e, quadrivalent, contains preservative Moody Richie TABLE LEVER OPERATOR.ORE CRUSHING DUST COLLECTOR Work Phone: [facility] 01-18-2013 tetanus toxoid, redu judah diphtheria toxoid, and acellular pertussis vaccine, adsorbed Moody Richie TABLE LEVER OPERATOR.ORE CRUSHING DUST COLLECTOR Work Phone: [facility] 12-19-2004 diphtheria and tetan us toxoids, adsorbed for pediatric use Moody Richie TABLE LEVER OPERATOR.ORE CRUSHING DUST COLLECTOR Work Phone: [facility] Work Phone: Payers Date Payer Category Payer Unknown [employer] PPO OOS [id number] 2021-Present [phone] [address] [place] [address] PPO [id number] 2021 Unknown [employer] PPO OOS [id number] 2021-Present [phone] [address] [place] [address] PPO [id number] 2021 Unknown [id number] Social History Date Type Detail Facility Start: 06-17-2022 Tobacco smoking status NHIS Never smoked tobacco [facility] Start: 12-10-2021 End: 06-12-2023 Alcohol intake Current drinker of alcohol (finding) [facility] Start: 05-03-2020 End: 06-16-2022 History SDOH Alcohol Frequency 2 [facility] Start: 05-03-2020 End: 06-16-2022 History SDOH Alcohol Std Drinks 1 [facility] Start: 05-03-2020 End: 06-16-2022 History SDOH Social Connections Phone 5 [facility] Start: 05-03-2020 End: 06-16-2022 History SDOH Social Connections Get Together 4 [facility] Start: 05-03-2020 End: 06-16-2022 History SDOH Social Connections [facility] 3 [facility] Start: 05-03-2020 Education 16 [facility] Start: 1965 Sex Assigned At Female [facility] Start: 11-30-2021 End: 06-17-2022 Exposure to SARS-CoV-2 (event) Not sure [facility] Work Phone: Start: 06-17-2022 Tobacco use and exposure Smokeless tobacco non-user [facility] Start: 06-16-2022 End: 06-11-2023 History of Social function [facility] Start: 06-16-2022 End: 06-11-2023 Social connection and isolation panel [facility] Do you belong to any clubs or organizations such as shinto groups, Moments, [employer] or athletic groups, or school groups? No [facility] Are you now , , , , never or living with a partner? [facility] How often to you hav e a drink containing alcohol? Monthly or less [facility] How many standard dr inks containing alcohol do you have on a typical day? 1 or 2 [facility] How often do you hav e 6 or more drinks on 1 occasion? Never [facility] How hard is it for y ou to pay for the very basics like food, housing, medical care, and heating Not hard at all [facility] Do you feel stress - tense, restless, nervous, or anxious, or unable to sleep at night because your mind is troubled all the time - these days [OSQ] Only a little [facility] (I/We) worried szui er (my/our) food would run out before (I/we) got money to buy more. Never true [facility] Start: 05-03-2020 Gender identity Identifies as female gender (finding) [facility] Start: 05-03-2020 Sexual orientation Heterosexual (finding) [facility] Do you belong to any clubs or organizations such as shinto groups, [employer], [employer] or athletic groups, or school groups? Yes [facility] Do you feel stress - tense, restless, nervous, or anxious, or unable to sleep at night because your mind is troubled all the time - these days [OSQ] To some extent [facility] Clinical Notes 09-09-2015 to 06-12-2023 Will Miles PA-C - 06/12/2023 9:20 AM EDTTelephone Encounter - Will Miles PA-C - 06/05/2023 5:54 PM EDTTelephone Encounter - Concepcion Velasco MA - 06/05/2023 10:42 AM EDT Note Date & Type Note Facility 06-12-2023 Note HNO ID: [id number] Author: Tamra Franco RT(R) Service: Radiology Author Type: Technologist Type: Progress Notes Filed: 06/12/2023 10:24 AM Note Text: Radiology Service Progress Note PATIENT NAME: Christine Busch DATE OF SERVICE: June 12, 2023 TIME: 10:15 AM PATIENT IDENTITY VERIFICATION COMPLETED USING TWO (2) IDENTIFIERS: Name and Date of confirmed by patient verbally. FALL SCREENING: Has the patient had 2 falls in the last year or 1 fall with injury or currently using an Ambulatory Assistive Device (Walker, Cane, Wheelchair, Crutches, etc.)? No PATIENT GENDER DATA: Female. status: : No status: NO. PATIENT RELEVANT IMPLANT DATA REVIEWED: Yes RADIOLOGY DEPARTMENT: General X-ray: Exam(s) Completed: Spine X-Ray(s): Lumbar AP / LAT / L5-S1 PERIPHERAL IV DATA: Not applicable SIGNED BY: RT Luis Manuel(R) June 12, 2023 10:15 AM [facility] 06-12-2023 Note HNO ID: [id number] Author: Will Miles PA-C Service: ? Author Type: Physician Office Analyst Type: Progress Notes Filed: 06/12/2023 12:56 PM Note Text: 57 year old female with c/o here for follow up. Here because still having right buttock pain. Has been doing piriformis exercises. Pain in SIJ radiating to lateral upper thigh S/p TKA, still painful but functioning well. Taking Tylenol 500mg and Ibuprofen 200mg as needed Hypertension, essential (primary encounter diagnosis) Moderate mixed hyperlipidemia not requiring statin therapy Cardiovascular interval hx: none Current meds: Losartan 25 mg 1 tablet twice a day Use of NTG: No Chest pain, arm, jaw pain, neck, or upper back pain suggestive of angina: No. SOB: No Dyspnea with exertion: No orthopnea: No Cough : No racing or irregular heartbeats: No palpitations: No syncopal sx: No Headache: No Unexplainable fatigue No Leg swelling: No Nausea: No diaphoresis: No Heartburn: No Claudication: No Smoking: No Following Low cholesterol, high fiber diet? some If on statin: muscle aches? No If on statin: GI sx or diarrhea? No Additional history: Lab review: Component Latest Ref Rng AND Units 04/29/2020 06/17/2022 12/19/2022 Protein, Total 6.3 - 8.0 g/dL 6.9 7.5 Albumin 3.9 - 4.9 g/dL 4.1 4.4 Calcium 8.5 - 10.2 mg/dL 9.6 10.1 Bilirubin, Total 0.2 - 1.3 mg/dL 0.2 0.5 Alkaline Phosphatase 34 - 123 U/L 63 84 AST 13 - 35 U/L 20 26 Glucose 74 - 99 mg/dL 85 94 BUN 7 - 21 mg/dL 12 14 Creatinine 0.58 - 0.96 mg/dL 0.69 0.64 Sodium 136 - 144 mmol/L 139 138 Potassium 3.7 - 5.1 mmol/L 4.3 4.5 Chloride 97 - 105 mmol/L 103 102 CO2 22 - 30 mmol/L 27 26 Anion Gap 9 - 18 mmol/L 9 10 ALT 7 - 38 U/L 25 26 eGFR- >60 eGFR-All Other Races . >60 eGFR >=60 mL/min/1.73mA? 104 WBC 3.70 - 11.00 k/uL 5.40 4.95 RBC 3.90 - 5.20 m/uL 4.35 4.71 Hemoglobin 11.5 - 15.5 g/dL 13.8 15.1 Hematocrit 36.0 - 46.0 % 42.1 45.4 MCV 80.0 - 100.0 fL 96.8 96.4 MCH 26.0 - 34.0 pg 31.7 32.1 MCHC 30.5 - 36.0 g/dL 32.8 33.3 RDW-CV 11.5 - 15.0 % 12.7 12.6 Platelet Count 150 - 400 k/uL 303 330 MPV 9.0 - 12.7 fL 10.5 9.9 Absolute nRBC <0.01 k/uL <0.01 <0.01 Cholesterol, Total <200 mg/dL 238 (H) 204 (H) 173 Triglyceride <150 mg/dL 200 (H) 151 (H) 138 HDL Cholesterol >39 mg/dL 45 55 50 LDL Cholesterol <100 mg/dL 153 (H) 119 (H) 95 Non HDL Cholesterol <130 mg/dL 193 (H) 149 (H) 123 Fasting Time hrs 12 12 13 VLDL Cholesterol <30 mg/dL 40 (H) 30 (H) 28 TC:HDL Ratio <5.10 5.29 (H) 3.71 3.46 LDL:HDL Ratio <2.54 3.40 (H) 2.16 1.90 Ifg (impaired fasting glucose) No medications, diet controlled Hemoglobin A1C (%) Date Value 12/19/2022 5.9 06/14/2022 6.0 05/07/2021 5.8 04/29/2020 6.0 ) Gastroesophageal reflux disease without esophagitis Current medication: none. Current symptoms: rare. Last Mg level if on PPI chronically: none. Heartburn is controlled: Yes. Dysphagia: No. Bloody or black stools: No. Bowel changes: No. Last EGD and/or colonoscopy: none. Anxiety and depression Current medications: Fluoxetine 20 mg +40 mg daily daily Stable, doing well. Thinking of reducing dose but not yet. Chronic pain of both knees S/p TKR on right Current medications: Glucosamine sulfate Acetaminophen 325 650 mg every 6 hours Doing well post-op but still quite a bit of pain all day. Tylenol helps a little but constant [pain. Occasional ibuprofen 200mg in addition HISTORIES FAMILY HISTORY Problem Relation Age of Onset Lipids Mother Arthritis Mother Lipids Father Cancer Maternal Grandfather stomach Cancer Maternal Uncle Diabetes Maternal Grandmother PAST MEDICAL HISTORY Diagnosis Date Depressive disorder, not elsewhere classified PMDD Generalized anxiety disorder Hypertension, essential 12/15/2021 Snoring PAST SURGICAL HISTORY Procedure Laterality Date DELIVERY ONLY x2 COLONOSCOPY 11/11/2016 repeat in 10 yrs NEUROPLASTY AND/TRANSPOS MEDIAN NRV CARPAL TUNNE 07/20/12 Carpal tunnel decomp right PAST SURGICAL HISTORY OF 03-19-08 left foot Ignacio bunionectomy with capsulorrhaphy S [facility] Right 05/12/2017 Social History Tobacco Use Smoking status: Never Smokeless tobacco: Never Substance Use Topics Alcohol use: Yes Drug use: No ACTIVE PROBLEM LIST Anxiety and Depression Ifg (Impaired Fasting Glucose) Gerd (Gastroesophageal Reflux Disease) Hyperlipidemia Chronic Pain of Both Knees Screening for Intestinal Cancer Scc (Squamous Cell Carcinoma), Face Intramural Leiomyoma of Uterus Hypertension, Essential Current Outpatient Medications Medication Sig Dispense Refill losartan (COZAAR) 25 mg tablet Take 1 tablet by mouth two times a day. 180 tablet 1 FLUoxetine (PROZAC) 20 mg capsule Take 1 capsule by mouth once daily. 90 capsule 3 atorvastatin (LIPITOR) 20 mg tablet Take 1 tablet by mouth daily at (more content not included)... [facility] 06-12-2023 History of Presen t illness Narrative 57 year old female with c/o here for follow up. Here because still having right buttock pain. Has been doing piriformis exercises. Pain in SIJ radiating to lateral upper thigh S/p TKA, still painful but functioning well. Taking Tylenol 500mg and Ibuprofen 200mg as needed Hypertension, essential (primary encounter diagnosis) Moderate mixed hyperlipidemia not requiring statin therapy Cardiovascular interval hx: none Current meds: Losartan 25 mg 1 tablet twice a day Use of NTG: No Chest pain, arm, jaw pain, neck, or upper back pain suggestive of angina: No. SOB: No Dyspnea with exertion: No orthopnea: No Cough : No racing or irregular heartbeats: No palpitations: No syncopal sx: No Headache: No Unexplainable fatigue No Leg swelling: No Nausea: No diaphoresis: No Heartburn: No Claudication: No Smoking: No Following Low cholesterol, high fiber diet? some If on statin: muscle aches? No If on statin: GI sx or diarrhea? No Additional history: Lab review: Component Latest Ref Rng & Units 04/29/2020 06/17/2022 12/19/2022 Protein, Total 6.3 - 8.0 g/dL 6.9 7.5 Albumin 3.9 - 4.9 g/dL 4.1 4.4 Calcium 8.5 - 10.2 mg/dL 9.6 10.1 Bilirubin, Total 0.2 - 1.3 mg/dL 0.2 0.5 Alkaline Phosphatase 34 - 123 U/L 63 84 AST 13 - 35 U/L 20 26 Glucose 74 - 99 mg/dL 85 94 BUN 7 - 21 mg/dL 12 14 Creatinine 0.58 - 0.96 mg/dL 0.69 0.64 Sodium 136 - 144 mmol/L 139 138 Potassium 3.7 - 5.1 mmol/L 4.3 4.5 Chloride 97 - 105 mmol/L 103 102 CO2 22 - 30 mmol/L 27 26 Anion Gap 9 - 18 mmol/L 9 10 ALT 7 - 38 U/L 25 26 eGFR- >60 eGFR-All Other Races . >60 eGFR >=60 mL/min/1.73m 104 WBC 3.70 - 11.00 k/uL 5.40 4.95 RBC 3.90 - 5.20 m/uL 4.35 4.71 Hemoglobin 11.5 - 15.5 g/dL 13.8 15.1 Hematocrit 36.0 - 46.0 % 42.1 45.4 MCV 80.0 - 100.0 fL 96.8 96.4 MCH 26.0 - 34.0 pg 31.7 32.1 MCHC 30.5 - 36.0 g/dL 32.8 33.3 RDW-CV 11.5 - 15.0 % 12.7 12.6 Platelet Count 150 - 400 k/uL 303 330 MPV 9.0 - 12.7 fL 10.5 9.9 Absolute nRBC <0.01 k/uL <0.01 <0.01 Cholesterol, Total <200 mg/dL 238 (H) 204 (H) 173 Triglyceride <150 mg/dL 200 (H) 151 (H) 138 HDL Cholesterol >39 mg/dL 45 55 50 LDL Cholesterol <100 mg/dL 153 (H) 119 (H) 95 Non HDL Cholesterol <130 mg/dL 193 (H) 149 (H) 123 Fasting Time hrs 12 12 13 VLDL Cholesterol <30 mg/dL 40 (H) 30 (H) 28 TC:HDL Ratio <5.10 5.29 (H) 3.71 3.46 LDL:HDL Ratio <2.54 3.40 (H) 2.16 1.90 Ifg (impaired fasting glucose) No medications, diet controlled Hemoglobin A1C (%) Date Value 12/19/2022 5.9 06/14/2022 6.0 05/07/2021 5.8 04/29/2020 6.0 ) Gastroesophageal reflux disease without esophagitis Current medication: none. Current symptoms: rare. Last Mg level if on PPI chronically: none. Heartburn is controlled: Yes. Dysphagia: No. Bloody or black stools: No. Bowel changes: No. Last EGD and/or colonoscopy: none. Anxiety and depression Current medications: Fluoxetine 20 mg +40 mg daily daily Stable, doing well. Thinking of reducing dose but not yet. Chronic pain of both knees S/p TKR on right Current medications: Glucosamine sulfate Acetaminophen 325 650 mg every 6 hours Doing well post-op but still quite a bit of pain all day. Tylenol helps a little but constant [pain. Occasional ibuprofen 200mg in addition HISTORIES FAMILY HISTORY Problem Relation Age of Onset Lipids Mother Arthritis Mother Lipids Father Cancer Maternal Grandfather stomach Cancer Maternal Uncle Diabetes Maternal Grandmother PAST MEDICAL HISTORY Diagnosis Date Depressive disorder, not elsewhere classified PMDD Generalized anxiety disorder Hypertension, essential 12/15/2021 Snoring PAST SURGICAL HISTORY Procedure Laterality Date DELIVERY ONLY x2 COLONOSCOPY 11/11/2016 repeat in 10 yrs NEUROPLASTY &/TRANSPOS MEDIAN NRV CARPAL TUNNE 07/20/12 Carpal tunnel decomp right PAST SURGICAL HISTORY OF 03-19-08 left foot Ignacio bunionectomy with capsulorrhaphy S KIT KNEE ARTHOSCOPY CARDINAL Right 05/12/2017 Social History Tobacco Use Smoking status: Never Smokeless tobacco: Never Substance Use Topics Alcohol use: Yes Drug use: No ACTIVE PROBLEM LIST Anxiety and Depression Ifg (Impaired Fasting Glucose) Gerd (Gastroesophageal Reflux Disease) Hyperlipidemia Chronic Pain of Both Knees Screening for Intestinal Cancer Scc (Squamous Cell Carcinoma), Face Intramural Leiomyoma of Uterus Hypertension, Essential Current Outpatient Medications Medication Sig Dispense Refill losartan (COZAAR) 25 mg tablet Take 1 tablet by mouth two times a day. 180 tablet 1 FLUoxetine (PROZAC) 20 mg capsule Take 1 capsule by mouth once daily. 90 capsule 3 atorvastatin (LIPITOR) 20 mg tablet Take 1 tablet by mouth daily at bedtime. For cholesterol. 30 tablet 5 FLUoxetine (PROZAC) 40 mg capsule Take 1 capsule by mouth once daily. 90 capsule 3 ergocalciferol, vitamin D2, (VITAMIN D2 ORAL) Take by mouth. glucosamine sulfate (GLUCOSAMINE ORAL) Take by mouth. MULTIVITAMIN ORAL Take by mouth. Blood Pressure Monitor kit 1 Each once daily. 1 Kit 0 acetaminophen (TYLENOL) 325 mg tablet Take 650 mg by mouth every 6 hours as needed. No current facility-administered medications for this visit. Hepatitis B Vaccine(1 of 3 - 3-dose series) Never done Hepatitis C Screening Never done HIV Screening Never done BP Controlled (<130/80) Never done Shingrix Vaccine(1 of 2) Never done Mammogram Screening due on 08/30/2022 DTaP,Tdap,Td Vaccine(3 - Td or Tdap) due on 01/18/2023 Influenza Vaccine(1) due on 04/21/2023 Covid-19 Vaccine(3 - 2022- season) due on 04/21/2023 Pap Testing due on 11/08/2023 HPV Testing due on 11/08/2023 EXAM: BP 128/76 Pulse 67 Resp 16 Wt 83.9 kg (185 lb) LMP 05/03/2020 (Exact Date) SpO2 98% BMI 33.03 kg/m Pleasant overweight adult woman in no acute distress. Alert and oriented all spheres. Normal affect and cognition. Speech normal. No deficits to learning or comprehension. Skin warm, dry, pink to lips and nailbeds. Normal turgor. Respirations regular and unlabored. HEENT: NCAT. No scleral icterus or conjunctival injection. TM's clear. Nose and oropharynx free from injection or lesion. Oral membranes moist and pink. No cervical lymph nodes. Thyroid non-tender, no masses, or enlargement. Carotids pulses 2+/4+ without bruits. No JVD with HOB at 30 degrees. Chest is normal shape. Lungs are clear to all orellana with good air exchange through out. HRRR without murmur or gallop. No lifts, heaves, or rubs. Extrem: tender over right SIJ, also tender lateral thigh muscular trigger points No clubbing or cyanosis. Edema: none. Extremities are warm and pink with prompt capillary refill. Very slight swelling right anterior knee. ASSESSMENT/PLAN: 1. Hypertension, essential - ICD9: 401.9, ICD10: I10 (primary diagnosis) - Controlled - Continue current medications - Recommend home blood pressure monitoring, to bring results to next visit - Encouraged sodium restriction, DASH or Mediterranean diet - Recommend regular aerobic exercise 2. Moderate mixed hyperlipidemia not requiring statin therapy - ICD9: 272.2, ICD10: E78.2 - Controlled - Continue current medications - Counseled on healthy diet and regular exercise 3. IFG (impaired fasting glucose) - ICD9: 790.21, ICD10: R73.01 Stable prediabetic rnage- discussed medication, wants to put off. 4. Gastroesophageal reflux disease without esophagitis - ICD9: 530.81, ICD10: K21.9 - Discussed lifestyle modifications including losing weight, limiting caffeine, no meals three hours before sleep, and head of bed elevation 5. Anxiety and depression - ICD9: 300.00, 311, ICD10: F41.9, F32.A Controlled without medication - FLUOXETINE 40 MG CAPSULE - FLUOXETINE 20 MG CAPSULE 6. History of total knee arthroplasty, right - ICD9: V43.65, ICD10: Z96.651 trial - PIROXICAM 20 MG CAPSULE Educated on new medication administration, warnings and cautions, common side effects, anticipated duration or therapy, and instructions on cessation management to avoid risks if stops medication. Patient choice was discussed in shared decision making. Instructed to take with food and notify if any GI issues,. 7. Right buttock pain - ICD9: 729.1, ICD10: M79.18 As aboce - XR LUMBAR GENERAL 3V AP/LAT/L5-S1 - CONSULT TO PAIN MGT - PIROXICAM 20 MG CAPSULE F/u 6 monthsSome of this note may have been copied and pasted for the purpose of history context and comparison and has been adjusted for changes in prior data. Will Miles PA-C documented in this encounter [facility] 06-05-2023 Miscellaneous Notes The following approved medication requests have been transmitted electronically. Requested Prescriptions Signed Prescriptions Disp Refills losartan (COZAAR) 25 mg tablet 180 tablet 1 Sig: Take 1 tablet by mouth two times a day. Authorizing Provider: Will MILES PA-C Patient has been identified by name and date of : Yes Requested Prescriptions Pending Prescriptions Disp Refills losartan (COZAAR) 25 mg tablet 180 tablet 1 Sig: Take 1 tablet by mouth two times a day. RX INSTRUCTIONS: Patient aware RX will be sent to pharmacy. No need to notify patient. Patient last office visit: 12/19/22 Patient next office visit: 06/12/23 Concepcion Velasco MA documented in this encounter [facility] 04-14-2023 Note HNO ID: [id number] Author: Radha Tejada PA-C Service: ? Author Type: Physician Office Analyst Type: Progress Notes Filed: 04/14/2023 7:53 AM Note Text: This note was created using [employer]. Subjective Christine Busch is a 57 year old female. HPI She presents with a chief complaint of a rash. States she has had it for 2 weeks. She was pulling weeds and got into some poison mallorie. She states is on her hands, arms, legs, under her breasts and backside. She states it is very itchy. She tried some Ivarest [id number] which did not seem to help. No other new exposures. No new soaps, medications, detergents. Review of Systems Skin: Positive for rash. All other systems reviewed and are negative. PAST MEDICAL HISTORY Diagnosis Date Depressive disorder, not elsewhere classified PMDD Generalized anxiety disorder Hypertension, essential 12/15/2021 Snoring Current Outpatient Medications Medication Sig Dispense Refill predniSONE (DELTASONE) 10 mg tablet Take 4 tabs daily for 3 days, then 2 tabs daily for 3 days, then 1 tab daily for 3 days with food. 21 tablet 0 triamcinolone acetonide (KENALOG) 0.1 % cream Apply 1 application to affected area three times daily for 7 days. Apply sparingly to area for rash/itching. 80 g 0 losartan (COZAAR) 25 mg tablet Take 1 tablet by mouth twice daily. 180 tablet 1 FLUoxetine (PROZAC) 20 mg capsule Take 1 capsule by mouth once daily. 90 capsule 3 atorvastatin (LIPITOR) 20 mg tablet Take 1 tablet by mouth daily at bedtime. For cholesterol. 30 tablet 5 FLUoxetine (PROZAC) 40 mg capsule Take 1 capsule by mouth once daily. 90 capsule 3 ergocalciferol, vitamin D2, (VITAMIN D2 ORAL) Take by mouth. glucosamine sulfate (GLUCOSAMINE ORAL) Take by mouth. MULTIVITAMIN ORAL Take by mouth. Blood Pressure Monitor kit 1 Each once daily. 1 Kit 0 acetaminophen (TYLENOL) 325 mg tablet Take 650 mg by mouth every 6 hours as needed. No current facility-administered medications for this visit. PAST SURGICAL HISTORY Procedure Laterality Date DELIVERY ONLY x2 COLONOSCOPY 11/11/2016 repeat in 10 yrs NEUROPLASTY AND/TRANSPOS MEDIAN NRV CARPAL TUNNE 07/20/12 Carpal tunnel decomp right PAST SURGICAL HISTORY OF 03-19-08 left foot Ignacio bunionectomy with capsulorrhaphy S KIT KNEE ARTHOSCOPY CARDINAL Right 05/12/2017 FAMILY HISTORY Problem Relation Age of Onset Lipids Mother Arthritis Mother Lipids Father Cancer Maternal Grandfather stomach Cancer Maternal Uncle Diabetes Maternal Grandmother Social History Tobacco Use Smoking status: Never Smokeless tobacco: Never Substance Use Topics Alcohol use: Yes Drug use: No Objective BP 152/95 Pulse 71 Temp 36.8 ?C (98.3 ?F) Resp 18 Wt 84.2 kg (185 lb 9.6 oz) LMP 05/03/2020 (Exact Date) SpO2 95% BMI 33.13 kg/m? Physical Exam Vitals reviewed. Constitutional: Appearance: Normal appearance. HENT: Head: Normocephalic and atraumatic. Skin: General: Skin is warm and dry. Findings: Rash present. Comments: Patient has erythematous raised vesicular rash on her hands, left forearm, bilateral thighs, left buttock, and under right breast. Consistent with contact dermatitis. Neurological: Mental Status: She is alert. Assessment and Plan ASSESSMENT/PLAN: 1. Allergic contact dermatitis due to plants, except food - ICD9: 692.6, ICD10: L23.7 - Oral Steriod tx -Prednisone taper - Topical steriod tx with Rx for steriod cream/ointment- see orders - Anti itch therapy of Oral Benydryl recommended prn - discussed skin care of rash - follow up if symptoms persist or worsen. Radha Tejada PA-C [facility] 12-19-2022 Note HNO ID: [id number] Author: Tamra Franco RT(R) Service: Radiology Author Type: Technologist Type: Progress Notes Filed: 12/19/2022 11:01 AM Note Text: Radiology Service Progress Note PATIENT NAME: Christine Busch DATE OF SERVICE: December 19, 2022 TIME: 10:55 AM PATIENT IDENTITY VERIFICATION COMPLETED USING TWO (2) IDENTIFIERS: Name and Date of confirmed by patient verbally. FALL SCREENING: Has the patient had 2 falls in the last year or 1 fall with injury or currently using an Ambulatory Assistive Device (Walker, Cane, Wheelchair, Crutches, etc.)? No PATIENT GENDER DATA: Female. status: : No status: NO. PATIENT RELEVANT IMPLANT DATA REVIEWED: Yes RADIOLOGY DEPARTMENT: General X-ray: Exam(s) Completed: Chest X-Ray PERIPHERAL IV DATA: Not applicable SIGNED BY: RT Luis Manuel(R) December 19, 2022 10:55 AM [facility] 12-19-2022 Note HNO ID: [id number] Author: Will Miles PA-C Service: ? Author Type: Physician Office Analyst Type: Progress Notes Filed: 12/19/2022 6:20 PM Note Text: XRHISTORY AND PHYSICAL EXAMINATION SERVICE DATE: 12/19/2022 SERVICE TIME: 9:52 AM PRIMARY CARE PHYSICIAN: Will Miles PA-C Patient presents for consultation from Dr. Pearce for medical preop clearance. My findings and recommendations will be communicated through this medical record. Upcoming surgery for: right total knee arthroscopy with taj assist. Pertinent history and review: Current signs of infection: No. Chest pain: No. Cardiac history or testing: none Shortness of breath: No. Pulmonary testing to date: yes Known sleep apnea: Yes. Hx of clotting issues: No. Current bleeding or bruising: No. Additional history of potential concern: 2 times in last 6 months got really dizzy Had paronychia, on antibiotics 09/16/2022 tolerated with cephalexin and mupirocin 2% REVIEW OF SYSTEMS: PAIN ASSESSMENT: Is the patient having any pain? Yes anterior right knee, 6/10, anterior , feels unstable. Using Tylenol General: No weight loss, malaise or fevers. Neuro: No Hx of stroke or seizures Respiratory: No history of current cough or dyspnea, or pneumonia in the past 6 weeks. No history of respiratory/pulmonary symptoms or problems Cardiovascular: Positive for: none GI: No history of GI symptoms or problems. No history of esophageal varices, recent ascites, or ETOH greater than 2 drinks per day. : No history of UTI in past 6 weeks. No history of renal failure. Not currently on or requiring dialysis. No history of symptoms or problems. DIRECTOR CLINICAL PHARMACOLOGY: Negative for abnormal vaginal bleeding, abnormal vaginal discharge. : N/A Endocrine: No history of diabetes. Has not taken steroids within the past 30 days. No history of endocrinological symptoms or problems. Hematology: No history of bleeding or clotting disorder. Pt is not taking anti-coagulation or platelet medications. No history of hematological symptoms or problems. Oncology: No history of CA metastasis, chemo within 30 days, or radiotherapy within 90 days. Has not lost 10% of body wt in 6 months. No history of oncological symptoms or problems. Hx SCC left face excised Psych: Depression Sees counselor but stopped because she is doing well. Managed on fluoxetine. Musculoskeletal: See HPI Skin: Negative for lesions, rash and itching. HISTORIES FAMILY HISTORY Problem Relation Age of Onset Lipids Mother Arthritis Mother Lipids Father Cancer Maternal Grandfather stomach Cancer Maternal Uncle Diabetes Maternal Grandmother PAST MEDICAL HISTORY Diagnosis Date Depressive disorder, not elsewhere classified PMDD Generalized anxiety disorder Hypertension, essential 12/15/2021 Snoring PAST SURGICAL HISTORY Procedure Laterality Date DELIVERY ONLY x2 COLONOSCOPY 11/11/2016 repeat in 10 yrs NEUROPLASTY AND/TRANSPOS MEDIAN NRV CARPAL TUNNE 07/20/12 Carpal tunnel decomp right PAST SURGICAL HISTORY OF 03-19-08 left foot Ignacio bunionectomy with capsulorrhaphy S KIT KNEE ARTHOSCOPY CARDINAL Right 05/12/2017 Social History Tobacco Use Smoking status: Never Smokeless tobacco: Never Substance Use Topics Alcohol use: Yes Drug use: No PHYSICAL EXAM: VITALS: BP 110/62 Pulse 103 Wt 195 lb (88.5kg) SpO2 95% LMP 01/19/2010 General: Alert and oriented, No acute distress, Distressed, Obese Skin: Normal color, no rash, no lesions. HEENT: EOM, pupils equal, round and reactive. Cardiovascular: Normal S1 AND S2, no rubs, murmurs or gallops. No JVD. Pulse regular. Lungs: Normal breath sounds, no wheezes or crackles. Abdomen: Soft, non-tender, no rigidity. Extremities: No deformity, no edema or tenderness, no joint swelling or clubbing. Neurological: Normal cognition and motor skills. Pulses: Carotid pulses; left 2+ / right 2+. Radial pulses; left 2+ / right 2+. Femoral pulses; left 2+ / right 2+. Diagnostic tests reviewed for today's visit: Most recent labs Most recent imaging Most recent EKG: sinus bradycardia at 56 beats per minute, normal axis, normal intervals, reviewed by myself. ASSESSMENT There is no known pertinent medical condition which may affect werner-operative course, she is at low risk for surgery. Thank you Dr. Sanchez for this kind request for consultation on this very pleasant and enjoyable lady. ASSESSMENT/PLAN: 1. Preoperative clearance - ICD9: V72.84, ICD10: Z01.818 (primary diagnosis) Complete lab work Await cardiology review EKG which shows no concerning abnormalities - CBC - BASIC METABOLIC PNL - HGB A1C - XR CHEST 2V FRONTAL/LAT - ECG COMPLETE 2. Hypertension, essential - ICD9: 401.9, ICD10: I10 - good control - Continue current medication(s) - Recommended regular aerobic exercise. - Recommend home blood pressure monitoring, to bring results in on next visit - (more content not included)... [facility] 12-19-2022 History of Presen t illness Narrative XRHISTORY AND PHYSICAL EXAMINATION SERVICE DATE: 12/19/2022\ SERVICE TIME: 9:52 AM PRIMARY CARE PHYSICIAN: Will Miles PA-C Patient presents for consultation from Dr. Pearce for medical preop clearance. My findings and recommendations will be communicated through this medical record. Upcoming surgery for: right total knee arthroscopy with taj assist. Pertinent history and review: Current signs of infection: No. Chest pain: No. Cardiac history or testing: none Shortness of breath: No. Pulmonary testing to date: yes Known sleep apnea: Yes. Hx of clotting issues: No. Current bleeding or bruising: No. Additional history of potential concern: 2 times in last 6 months got really dizzy Had paronychia, on antibiotics 09/16/2022 tolerated with cephalexin and mupirocin 2% REVIEW OF SYSTEMS: PAIN ASSESSMENT: Is the patient having any pain? Yes anterior right knee, 6/10, anterior , feels unstable. Using Tylenol General: No weight loss, malaise or fevers. Neuro: No Hx of stroke or seizures Respiratory: No history of current cough or dyspnea, or pneumonia in the past 6 weeks. No history of respiratory/pulmonary symptoms or problems Cardiovascular: Positive for: none GI: No history of GI symptoms or problems. No history of esophageal varices, recent ascites, or ETOH greater than 2 drinks per day. : No history of UTI in past 6 weeks. No history of renal failure. Not currently on or requiring dialysis. No history of symptoms or problems. DIRECTOR CLINICAL PHARMACOLOGY: Negative for abnormal vaginal bleeding, abnormal vaginal discharge. : N/A Endocrine: No history of diabetes. Has not taken steroids within the past 30 days. No history of endocrinological symptoms or problems. Hematology: No history of bleeding or clotting disorder. Pt is not taking anti-coagulation or platelet medications. No history of hematological symptoms or problems. Oncology: No history of CA metastasis, chemo within 30 days, or radiotherapy within 90 days. Has not lost 10% of body wt in 6 months. No history of oncological symptoms or problems. Hx SCC left face excised Psych: Depression Sees counselor but stopped because she is doing well. Managed on fluoxetine. Musculoskeletal: See HPI Skin: Negative for lesions, rash and itching. HISTORIES FAMILY HISTORY Problem Relation Age of Onset Lipids Mother Arthritis Mother Lipids Father Cancer Maternal Grandfather stomach Cancer Maternal Uncle Diabetes Maternal Grandmother PAST MEDICAL HISTORY Diagnosis Date Depressive disorder, not elsewhere classified PMDD Generalized anxiety disorder Hypertension, essential 12/15/2021 Snoring PAST SURGICAL HISTORY Procedure Laterality Date DELIVERY ONLY x2 COLONOSCOPY 11/11/2016 repeat in 10 yrs NEUROPLASTY &/TRANSPOS MEDIAN NRV CARPAL TUNNE 07/20/12 Carpal tunnel decomp right PAST SURGICAL HISTORY OF 03-19-08 left foot Ignacio bunionectomy with capsulorrhaphy S KIT KNEE ARTHOSCOPY CARDINAL Right 05/12/2017 Social History Tobacco Use Smoking status: Never Smokeless tobacco: Never Substance Use Topics Alcohol use: Yes Drug use: No PHYSICAL EXAM: VITALS: BP 110/62 Pulse 103 Wt 195 lb (88.5kg) SpO2 95% LMP 01/19/2010 General: Alert and oriented, No acute distress, Distressed, Obese Skin: Normal color, no rash, no lesions. HEENT: EOM, pupils equal, round and reactive. Cardiovascular: Normal S1 & S2, no rubs, murmurs or gallops. No JVD. Pulse regular. Lungs: Normal breath sounds, no wheezes or crackles. Abdomen: Soft, non-tender, no rigidity. Extremities: No deformity, no edema or tenderness, no joint swelling or clubbing. Neurological: Normal cognition and motor skills. Pulses: Carotid pulses; left 2+ / right 2+. Radial pulses; left 2+ / right 2+. Femoral pulses; left 2+ / right 2+. Diagnostic tests reviewed for today's visit: Most recent labs Most recent imaging Most recent EKG: sinus bradycardia at 56 beats per minute, normal axis, normal intervals, reviewed by myself. ASSESSMENT There is no known pertinent medical condition which may affect werner-operative course, she is at low risk for surgery. Thank you Dr. Sanchez for this kind request for consultation on this very pleasant and enjoyable lady. ASSESSMENT/PLAN: 1. Preoperative clearance - ICD9: V72.84, ICD10: Z01.818 (primary diagnosis) Complete lab work Await cardiology review EKG which shows no concerning abnormalities - CBC - BASIC METABOLIC PNL - HGB A1C - XR CHEST 2V FRONTAL/LAT - ECG COMPLETE 2. Hypertension, essential - ICD9: 401.9, ICD10: I10 - good control - Continue current medication(s) - Recommended regular aerobic exercise. - Recommend home blood pressure monitoring, to bring results in on next visit - Discussed need and benefit for weight loss. - Goal of BP <130/80 - LOSARTAN 25 MG TABLET - FLUOXETINE 20 MG CAPSULE 3. IFG (impaired fasting glucose) - ICD9: 790.21, ICD10: R73.01 Recheck control - HGB A1C 4. Moderate mixed hyperlipidemia not requiring statin therapy - ICD9: 272.2, ICD10: E78.2 - good control - Encouraged following a low fat, low cholesterol diet. - Discussed the benefits of regular aerobic exercise and weight loss. - Encouraged following a low carbohydrate, healthy oil intake diet. 5. Anxiety and depression - ICD9: 300.00, 311, ICD10: F41.9, F32.A stable 6. Gastroesophageal reflux disease without esophagitis - ICD9: 530.81, ICD10: K21.9 - Discussed lifestyle modifications including losing weight, limiting caffeine, no meals three hours before sleep, and head of bed elevation 7. Chronic pain of both knees - ICD9: 719.46, 338.29, ICD10: M25.561, M25.562, G89.29 Surgical intervention 8. SCC (squamous cell carcinoma), face - ICD9: 173.32, ICD10: C44.320 No recurrence evidenct Will Miles PA-C Clinical Risk Factors for Possible Cardiac Complications: None Patient is scheduled for a low-risk procedure. FUNCTIONAL STATUS: Have sexual relations (5.25 METs) Functional Class (NYHA): I-II ANESTHESIA FINDINGS: Intubation History: No history of difficult intubation Significant Anesthesia Considerations: None Airway Exam: General: Normal appearance Mallampati Score is CLASS II ULBT: Class I - Lower incisors can bite the upper lip above the aimee line Neck: Normal appearance and function, Distance from hyoid to mentum during neck extension is at least 3 finger breaths Mouth: Normal tongue size Dentition: Intact Airway History: No abnormal airway history [facility]: Not obtained PLAN CONSULTS: Patient does not require consults for optimization at this time. The Following Tests/Procedures Have Been Initiated: EKG, Chest X-Ray, BMP, CBC Instructions Given to Patient: Patient given verbal and written preop instructions and voices comprehension and compliance. SIGNATURE: Will Miles PA-C PATIENT NAME: Christine Kunz Jo-Ann DATE: 12/19/2022 TIME: 9:52 AM PAGER/CONTACT #: [phone] documented in this encounter [facility] 2022 Note Patient Outreach (IN [facility]) JO-ANNCHRISTINE Kunz ([id number]) 1965 F Date Time Provider Department 10/12/22 Will MILES During your visit today, we recorded the following information about you: Allergies As of Date: 2022 (No Known Allergies) Date Reviewed: 06/17/2022 Reviewed by: Apurva Luna Ma - Fully Assessed Visit Diagnosis:Encounter for screening mammogram for breast cancer [Z12.31] Order(s):[facility] SCREENING [[id number]] Order #: [id number] FUTURE Prescriptions as of 10/17/2022 - losartan (COZAAR) 25 mg tablet Take 1 tablet by mouth twice daily. - FLUoxetine (PROZAC) 40 mg capsule Take 1 capsule by mouth once daily. - atorvastatin (LIPITOR) 20 mg tablet Take 1 tablet by mouth daily at bedtime. For cholesterol. - FLUoxetine (PROZAC) 20 mg capsule Take 1 capsule by mouth once daily. - ergocalciferol, vitamin D2, (VITAMIN D2 ORAL) Take by mouth. - glucosamine sulfate (GLUCOSAMINE ORAL) Take by mouth. - MULTIVITAMIN ORAL Take by mouth. - Blood Pressure Monitor kit 1 Each once daily. - acetaminophen (TYLENOL) 325 mg tablet Take 650 mg by mouth every 6 hours as needed. - IBUPROFEN 200 MG TAB Take 1-2 tablet's) every four(4) to six(6) hours as needed for pain. Problem List As Of Date 2022 Noted Resolved Hallux valgus (acquired) [M20.10] 02/18/2008 09/23/2016 Right carpal tunnel syndrome [G56.01] 06/12/2012 09/23/2016 Left carpal tunnel syndrome [G56.02] 06/12/2012 09/23/2016 Lateral epicondylitis of right elbow [M77.11] 06/12/2012 09/23/2016 Anxiety and depression [F41.9, F32.A] 06/13/2012 Trigger thumb of right hand [M65.311] 05/07/2013 09/23/2016 IFG (impaired fasting glucose) [R73.01] 02/12/2015 GERD (gastroesophageal reflux disease) [K21.9] 02/12/2015 Shoulder tendinitis [M77.8] 09/09/2015 09/23/2016 Hyperlipidemia [E78.5] 09/23/2016 Chronic pain of both knees [M25.561, M25.562, G*09/23/2016 Screening for intestinal cancer [Z12.10] 10/14/2016 SCC (squamous cell carcinoma), face [C44.320] 09/10/2018 Intramural leiomyoma of uterus [D25.1] 08/12/2019 Hypertension, essential [I10] 12/15/2021 Encounter Status:Closed by PUNEET, PRODUSER on 10/17/22 [facility] 06-17-2022 Note HNO ID: [id number] Author: Will Miles PA-C Service: ? Author Type: Physician Office Analyst Type: Progress Notes Filed: 06/17/2022 5:33 PM Note Text: 56 year old female with c/o here for follow up Hypertension, essential (primary encounter diagnosis) Current meds: Losartan 25 mg twice a day Patient is compliant with meds Yes Monitors bp at home: No. If yes, readings: Denies side effects: Yes. Chest pain: No. Dyspnea: No. Edema: No. Palpitations: No. Syncope: No. Headache: No. Dizziness: No. Last 3 Encounter BP Readings: Date: BP: 12/16/2021 130/82 12/14/2021 162/100 12/10/2021 142/82 Last 2 Encounter Wt Readings: Date: Wt: 12/16/2021 83 kg (183 lb) 12/14/2021 83.5 kg (184 lb) Hyperlipidemia, unspecified hyperlipidemia type Current medication Atorvastatin 20mg daily HS Taking medication consistently Yes Observing low cholesterol high fiber diet Yes, trying to Muscle aches No Stomach complaints/ diarrhea No Last 2 Lipids: Component Latest Ref Rng AND Units 04/29/2020 12/10/2021 Cholesterol, Total <200 mg/dL 238 (H) 253 (H) Triglyceride <150 mg/dL 200 (H) 165 (H) HDL Cholesterol >39 mg/dL 45 43 LDL Cholesterol <100 mg/dL 153 (H) 177 (H) Non HDL Cholesterol <130 mg/dL 193 (H) 210 (H) Fasting Time hrs 12 12 VLDL Cholesterol <30 mg/dL 40 (H) 33 (H) TC:HDL Ratio <5.10 5.29 (H) 5.88 (H) LDL:HDL Ratio <2.54 3.40 (H) 4.12 (H) Ifg (impaired fasting glucose) Hemoglobin A1C (%) Date Value 06/14/2022 6.0 12/10/2021 5.8 05/07/2021 5.8 04/29/2020 6.0 ) Gastroesophageal reflux disease without esophagitis Avoid food that bother. Has omeprazole if needed Anxiety and depression Current medications: fluoxetine Mood is good. Counseling omari Gerber is helping. Bad knees, bone on bone. Seeing [facility] HISTORIES FAMILY HISTORY Problem Relation Age of Onset Lipids Mother Arthritis Mother Lipids Father Cancer Maternal Grandfather stomach Cancer Maternal Uncle Diabetes Maternal Grandmother PAST MEDICAL HISTORY Diagnosis Date Depressive disorder, not elsewhere classified PMDD Generalized anxiety disorder Hypertension, essential 12/15/2021 Snoring PAST SURGICAL HISTORY Procedure Laterality Date DELIVERY ONLY x2 COLONOSCOPY 11/11/2016 repeat in 10 yrs NEUROPLASTY AND/TRANSPOS MEDIAN NRV CARPAL TUNNE 07/20/12 Carpal tunnel decomp right PAST SURGICAL HISTORY OF 03-19-08 left foot Ignacio bunionectomy with capsulorrhaphy S KIT KNEE ARTHOSCOPY CARDINAL Right 05/12/2017 Social History Tobacco Use Smoking status: Never Smokeless tobacco: Never Substance Use Topics Alcohol use: Yes Drug use: No ACTIVE PROBLEM LIST Anxiety and Depression Ifg (Impaired Fasting Glucose) Gerd (Gastroesophageal Reflux Disease) Hyperlipidemia Chronic Pain of Both Knees Screening for Intestinal Cancer Scc (Squamous Cell Carcinoma), Face Intramural Leiomyoma of Uterus Hypertension, Essential Current Outpatient Medications Medication Sig Dispense Refill atorvastatin (LIPITOR) 20 mg tablet Take 1 tablet by mouth daily at bedtime. For cholesterol. 30 tablet 5 FLUoxetine (PROZAC) 20 mg capsule Take 1 capsule by mouth once daily. 90 capsule 3 FLUoxetine (PROZAC) 40 mg capsule Take 1 capsule by mouth once daily. 30 capsule 5 losartan (COZAAR) 25 mg tablet Take 1 tablet by mouth twice daily. 180 tablet 1 ergocalciferol, vitamin D2, (VITAMIN D2 ORAL) Take by mouth. glucosamine sulfate (GLUCOSAMINE ORAL) Take by mouth. MULTIVITAMIN ORAL Take by mouth. Blood Pressure Monitor kit 1 Each once daily. 1 Kit 0 acetaminophen (TYLENOL) 325 mg tablet Take 650 mg by mouth every 6 hours as needed. IBUPROFEN 200 MG TAB Take 1-2 tablet's) every four(4) to six(6) hours as needed for pain. 0 No current facility-administered medications for this visit. HEPATITIS B(1 of 3 - 3-dose series) Never done HEPATITIS C SCREENING Never done HIV SCREENING Never done BP CONTROLLED (<130/80) Never done INFLUENZA(1) due on 04/21/2022 MAMMOGRAM due on 08/30/2022 EXAM: BP 128/76 Pulse (!) 59 Wt 83 kg (183 lb) LMP 05/03/2020 (Exact Date) SpO2 97% BMI 32.67 kg/m? Pleasant obese adult woman in no acute distress. Alert and oriented all spheres. Normal affect and cognition. Speech normal. No deficits to learning or comprehension. Skin warm, dry, pink to lips and nailbeds. Normal turgor. Respirations regular and unlabored. HEENT: NCAT. No scleral icterus or conjunctival injection. TM's clear. Nose and oropharynx free from injection or lesion. Oral membranes moist and pink. No cervical lymph nodes. Thyroid non-tender, no masses, or enlargement. Carotids pulses 2+/4+ without bruits. No JVD with HOB at 30 degrees. Chest is normal shape. Lungs are clear to all orellana with good air exchange through out. HRRR without murmur or gallop. No lifts, heaves, or rubs. Extrem: no clubbing or cyanosis. Edema (more content not included)... [facility] 06-17-2022 Instructions Will Miles PA-C - 06/17/2022 9:31 AM EDT Push fluids for muscle Piriformis stretching as per handout documented in this encounter [facility] 06-17-2022 History of Presen t illness Narrative 56 year old female with c/o here for follow up Hypertension, essential (primary encounter diagnosis) Current meds: Losartan 25 mg twice a day Patient is compliant with meds Yes Monitors bp at home: No. If yes, readings: Denies side effects: Yes. Chest pain: No. Dyspnea: No. Edema: No. Palpitations: No. Syncope: No. Headache: No. Dizziness: No. Last 3 Encounter BP Readings: Date: BP: 12/16/2021 130/82 12/14/2021 162/100 12/10/2021 142/82 Last 2 Encounter Wt Readings: Date: Wt: 12/16/2021 83 kg (183 lb) 12/14/2021 83.5 kg (184 lb) Hyperlipidemia, unspecified hyperlipidemia type Current medication Atorvastatin 20mg daily HS Taking medication consistently Yes Observing low cholesterol high fiber diet Yes, trying to Muscle aches No Stomach complaints/ diarrhea No Last 2 Lipids: Component Latest Ref Rng & Units 04/29/2020 12/10/2021 Cholesterol, Total <200 mg/dL 238 (H) 253 (H) Triglyceride <150 mg/dL 200 (H) 165 (H) HDL Cholesterol >39 mg/dL 45 43 LDL Cholesterol <100 mg/dL 153 (H) 177 (H) Non HDL Cholesterol <130 mg/dL 193 (H) 210 (H) Fasting Time hrs 12 12 VLDL Cholesterol <30 mg/dL 40 (H) 33 (H) TC:HDL Ratio <5.10 5.29 (H) 5.88 (H) LDL:HDL Ratio <2.54 3.40 (H) 4.12 (H) Ifg (impaired fasting glucose) Hemoglobin A1C (%) Date Value 06/14/2022 6.0 12/10/2021 5.8 05/07/2021 5.8 04/29/2020 6.0 ) Gastroesophageal reflux disease without esophagitis Avoid food that bother. Has omeprazole if needed Anxiety and depression Current medications: fluoxetine Mood is good. Counseling omari Gerber is helping. Bad knees, bone on bone. Seeing [facility] HISTORIES FAMILY HISTORY Problem Relation Age of Onset Lipids Mother Arthritis Mother Lipids Father Cancer Maternal Grandfather stomach Cancer Maternal Uncle Diabetes Maternal Grandmother PAST MEDICAL HISTORY Diagnosis Date Depressive disorder, not elsewhere classified PMDD Generalized anxiety disorder Hypertension, essential 12/15/2021 Snoring PAST SURGICAL HISTORY Procedure Laterality Date DELIVERY ONLY x2 COLONOSCOPY 11/11/2016 repeat in 10 yrs NEUROPLASTY &/TRANSPOS MEDIAN NRV CARPAL TUNNE 07/20/12 Carpal tunnel decomp right PAST SURGICAL HISTORY OF 03-19-08 left foot Ignacio bunionectomy with capsulorrhaphy S KIT KNEE ARTHOSCOPY CARDINAL Right 05/12/2017 Social History Tobacco Use Smoking status: Never Smokeless tobacco: Never Substance Use Topics Alcohol use: Yes Drug use: No ACTIVE PROBLEM LIST Anxiety and Depression Ifg (Impaired Fasting Glucose) Gerd (Gastroesophageal Reflux Disease) Hyperlipidemia Chronic Pain of Both Knees Screening for Intestinal Cancer Scc (Squamous Cell Carcinoma), Face Intramural Leiomyoma of Uterus Hypertension, Essential Current Outpatient Medications Medication Sig Dispense Refill atorvastatin (LIPITOR) 20 mg tablet Take 1 tablet by mouth daily at bedtime. For cholesterol. 30 tablet 5 FLUoxetine (PROZAC) 20 mg capsule Take 1 capsule by mouth once daily. 90 capsule 3 FLUoxetine (PROZAC) 40 mg capsule Take 1 capsule by mouth once daily. 30 capsule 5 losartan (COZAAR) 25 mg tablet Take 1 tablet by mouth twice daily. 180 tablet 1 ergocalciferol, vitamin D2, (VITAMIN D2 ORAL) Take by mouth. glucosamine sulfate (GLUCOSAMINE ORAL) Take by mouth. MULTIVITAMIN ORAL Take by mouth. Blood Pressure Monitor kit 1 Each once daily. 1 Kit 0 acetaminophen (TYLENOL) 325 mg tablet Take 650 mg by mouth every 6 hours as needed. IBUPROFEN 200 MG TAB Take 1-2 tablet's) every four(4) to six(6) hours as needed for pain. 0 No current facility-administered medications for this visit. HEPATITIS B(1 of 3 - 3-dose series) Never done HEPATITIS C SCREENING Never done HIV SCREENING Never done BP CONTROLLED (<130/80) Never done INFLUENZA(1) due on 04/21/2022 MAMMOGRAM due on 08/30/2022 EXAM: BP 128/76 Pulse (!) 59 Wt 83 kg (183 lb) LMP 05/03/2020 (Exact Date) SpO2 97% BMI 32.67 kg/m Pleasant obese adult woman in no acute distress. Alert and oriented all spheres. Normal affect and cognition. Speech normal. No deficits to learning or comprehension. Skin warm, dry, pink to lips and nailbeds. Normal turgor. Respirations regular and unlabored. HEENT: NCAT. No scleral icterus or conjunctival injection. TM's clear. Nose and oropharynx free from injection or lesion. Oral membranes moist and pink. No cervical lymph nodes. Thyroid non-tender, no masses, or enlargement. Carotids pulses 2+/4+ without bruits. No JVD with HOB at 30 degrees. Chest is normal shape. Lungs are clear to all orellana with good air exchange through out. HRRR without murmur or gallop. No lifts, heaves, or rubs. Extrem: no clubbing or cyanosis. Edema: none. Extremities are warm and pink with prompt capillary refill. ASSESSMENT/PLAN: 1. Hypertension, essential - ICD9: 401.9, ICD10: I10 (primary diagnosis) - good control - Recommended regular aerobic exercise. - Recommend home blood pressure monitoring, to bring results in on next visit - Goal of BP <130/80 - LOSARTAN 25 MG TABLET 2. Hyperlipidemia, unspecified hyperlipidemia type - ICD9: 272.4, ICD10: E78.5 - good control - Continue current medication. - LIPID PANEL BASIC 3. IFG (impaired fasting glucose) - ICD9: 790.21, ICD10: R73.01 - COMP METABOLIC PANEL 4. Gastroesophageal reflux disease without esophagitis - ICD9: 530.81, ICD10: K21.9 - Discussed lifestyle modifications including losing weight, limiting caffeine, no meals three hours before sleep, and head of bed elevation - COMP METABOLIC PANEL 5. Anxiety and depression - ICD9: 300.00, 311, ICD10: F41.9, F32.A - FLUOXETINE 40 MG CAPSULE 6. Need for influenza vaccination - ICD9: V04.81, ICD10: Z23 - INFLUENZA VACCINE QUADRIVALENT 6 MO - 64 YRS IM Will Miles PA-C documented in this encounter [facility] 01-20-2022 Miscellaneous Notes Filled 12/16/21 with 5 refills documented in this encounter [facility] 12-14-2021 Instructions Moody Quiroz APRN.ORE CRUSHING DUST COLLECTOR - 12/14/2021 2:12 PM EDT [facility] PATIENT INFO CONJUNCTIVITIS OVERVIEW Conjunctivitis, also called pinkeye , is defined as an inflammation of the conjunctiva. The conjunctiva is the thin membrane that lines the inner surface of the eyelids and the whites of the eyes (called the sclera). Conjunctivitis can affect children and adults. The most common symptoms of conjunctivitis include a red eye and discharge. There are many potential causes of conjunctivitis, including bacterial or viral infections, allergies, or a non-specific condition (eg, a foreign body in the eye). All types of conjunctivitis cause a red eye, although not everyone with a red eye has conjunctivitis. TYPES OF CONJUNCTIVITIS There are four main types of conjunctivitis: bacterial, viral, allergic, and non-specific. Most cases of infectious conjunctivitis are viral in adults and children; however, bacterial conjunctivitis is more common in children than in adults. Viral conjunctivitis Viral conjunctivitis is typically caused by a virus that can also cause the common cold. A person may have symptoms of conjunctivitis alone, or as part of a general cold syndrome, with swollen lymph nodes (glands), fever, a sore throat, and runny nose. Viral conjunctivitis is highly contagious. It is spread by contact, usually with objects which have come into contact with the infected person's eye secretions. As examples, the virus can be transmitted when an infected person touches their eye and then touches another surface (eg, door handle) or shares an object that has touched their eye (eg, a towel or pillow case). The most common symptoms of viral conjunctivitis include redness, watery or mucus discharge, and a burning, abbie, or gritty feeling in one eye. Some people have morning crusting followed by watery discharge, perhaps with some scant mucus discharge throughout the day. The second eye usually becomes infected within 24 to 48 hours. There is no cure for viral conjunctivitis. Recovery can begin within days, although the symptoms frequently get worse for the first three to five days, with gradual improvement over the following one to two weeks for a total course of two to three weeks. Some people experience morning crusting that continues for up to two weeks after the initial symptoms, although the daytime redness, irritation, and tearing should be much improved. Bacterial conjunctivitis Bacterial conjunctivitis is highly contagious, often affecting multiple family members or children within a classroom. Bacterial conjunctivitis is spread by contact, usually with objects which have come into contact with the infected person's eye secretions. As examples, the virus can be transmitted when an infected person touches their eye and then touches another surface (eg, door handle) or shares an object that has touched their eye (eg, a towel or pillow case). The most common symptoms of bacterial conjunctivitis include redness and thick discharge from one eye, although both eyes can become infected. The discharge may be yellow, white, or green, and it usually continues to drain throughout the day. The affected eye often is stuck shut in the morning. Most types of bacterial conjunctivitis resolve quickly and cause no permanent damage when treated with antibiotic eye drops or ointment Non-specific conjunctivitis It is possible to develop a red eye and discharge that is not caused by an infection or allergy. The most common causes include one of the following. People with a dry eye may have chronic or intermittent redness or discharge. A person whose eyes are irrigated after a chemical splash may have redness and discharge. A person with a foreign body (eg, dust, eyelash) in the eye may have redness and discharge for 12 to 24 hours after the object is removed. All of these problems generally improve spontaneously within 24 hours. CONJUNCTIVITIS TREATMENT The treatment of conjunctivitis depends upon the cause. For this reason, it is important to have the correct diagnosis before treatment begins. Viral conjunctivitis treatment A topical antihistamine/decongestant eye drop may help to relieve the itching and irritation of viral conjunctivitis. These drops are available without a prescription in most pharmacies. However, particular care must be taken to avoid spreading viral infections from one eye to the other apply drops only to affected eye and wash hands thoroughly after application. Similar to cold medicines, this treatment may reduce the symptoms but does not shorten the course of the infection. Another option is to use warm or cool compresses, as needed. The irritation and discharge may get worse for three to five days before getting better, and symptoms can persist for two to three weeks. Bacterial conjunctivitis treatment Bacterial conjunctivitis is usually treated with an antibiotic eye drop or ointment. When started early, treatment helps to shorten the duration of symptoms, although most cases do resolve spontaneously if no treatment is used. Adults Adults are usually treated with an antibiotic eye drop or ointment for five to seven days. Redness, irritation, and eye discharge should begin to improve within 24 to 48 hours. If there is no improvement or if the condition worsens within this time, the person should be evaluated by an numerical control operator. Contact lens wearers People who wear contact lenses should be evaluated by a healthcare provider before treatment begins; this is to confirm the diagnosis of conjunctivitis and to be sure that another, more serious condition related to contact lens use (an infection of the cornea), is not present. People who wear contact lenses should avoid wearing the lenses during the first 24 hours of treatment, or until the eye is no longer red. The contact case should be thrown away and the contacts disinfected overnight or replaced (if disposable). Return to work/school The safest approach to avoid spreading viral and bacterial conjunctivitis to others is to stay home until there is no longer any discharge from the eye(s). However, this is not practical for most students and for those who work outside the home. Most daycare centers and schools require that students receive 24 hours of eye drops or ointment before returning to school. This treatment helps to prevent the spread of bacterial conjunctivitis, but is not necessary or helpful for children with viral conjunctivitis. Viral conjunctivitis is similar to a cold because it spreads easily between people. Younger children, who may not remember to wash their hands or avoid touching their eyes, should probably not attend school until the discharge has resolved. Older students or adults may choose to attend school/work, although they should limit close contact with others. In addition, adults who have contact with the very old, the very young, and people with a weakened immune system should limit contact with these susceptible individuals. Non-specific conjunctivitis treatment The conjunctiva heals quickly after it is injured, and non-specific conjunctivitis usually resolves within a few days without any treatment. However, the eye may feel better faster when it is treated with a lubricant, such as drops or ointments. These products are available without a prescription in most pharmacies. Preservative-free preparations are more expensive and are necessary only for people with a severe case of dry eye and those who are allergic to preservatives. Lubricant drops can be used as often as hourly with no side effects. The ointment provides longer lasting relief but blurs vision temporarily. For this reason, some people use ointment only at bedtime. It may be worthwhile to switch brands if one brand of drop or ointment is irritating, since each preparation contains different active and inactive ingredients and preservatives. Antibiotic or steroid eye drops/ointments are not recommended unless there is a specific reason they are needed (eg, a bacterial infection or inflammatory condition). Using these treatments when they are not needed can lead to serious complications. If the symptoms of conjunctivitis do not improve within two weeks, an examination with an numerical control operator may be recommended. CONJUNCTIVITIS PREVENTION Bacterial and viral conjunctivitis are both highly contagious and spread by direct contact with secretions or contact with contaminated objects. Simple hygiene measures can help minimize transmission to others. Adults or children with bacterial or viral conjunctivitis should not share handkerchiefs, tissues, towels, cosmetics, or bed sheets/pillows with uninfected family or friends. Hand washing is an essential and highly effective way to prevent the spread of infection. Hands should be wet with water and plain soap, and rubbed together for 15 to 30 seconds. It is not necessary to use antibacterial hand soap. Teach children to wash their hands before and after eating and after touching the eyes, coughing, or sneezing. Alcohol-based hand rubs are a good alternative for disinfecting hands if a sink is not available. Hand rubs should be spread over the entire surface of hands, fingers, and wrists until dry, and may be used several times. These rubs can be used repeatedly without skin irritation or loss of effectiveness. documented in this encounter [facility] 12-14-2021 History of Presen t illness Narrative Subjective HPI HPI Christine Busch is a 56 year old female who presents today for CC of sinus pressure, cough, intermittent cp/sob, not currently. This started 1 week ago/worsening. Has tried otc medication for relief and prednisone. Symptoms are worsened by nothing. Left eye redness/drainage started 1 day ago. Denies eye pain, blurred vision, vision change. .Patient presents with: Sinus Problem: drainage, cough, sore throat x 6 days, left eye red and drainage x 1 day PAST MEDICAL HISTORY Diagnosis Date Depressive disorder, not elsewhere classified PMDD Generalized anxiety disorder Snoring PAST SURGICAL HISTORY Procedure Laterality Date DELIVERY ONLY x2 COLONOSCOPY 11/11/2016 repeat in 10 yrs NEUROPLASTY &/TRANSPOS MEDIAN NRV CARPAL TUNNE 07/20/12 Carpal tunnel decomp right PAST SURGICAL HISTORY OF 03-19-08 left foot Ignacio bunionectomy with capsulorrhaphy S KIT KNEE ARTHOSCOPY CARDINAL Right 05/12/2017 ALLERGIES Patient has no known allergies. MEDICATIONS predniSONE (DELTASONE) 20 mg tablet Take 2 tablets by mouth once daily for 5 days. losartan (COZAAR) 25 mg tablet Take 1 tablet by mouth twice daily. FLUoxetine HCl (PROZAC) 40 mg capsule Take 1 capsule by mouth once daily. FLUoxetine (PROZAC) 20 mg capsule Take 1 capsule by mouth once daily. losartan (COZAAR) 25 mg tablet Take 1 tablet by mouth twice daily. ergocalciferol, vitamin D2, (VITAMIN D2 ORAL) Take by mouth. glucosamine sulfate (GLUCOSAMINE ORAL) Take by mouth. MULTIVITAMIN ORAL Take by mouth. Blood Pressure Monitor kit 1 Each once daily. acetaminophen (TYLENOL) 325 mg tablet Take 650 mg by mouth every 6 hours as needed. IBUPROFEN 200 MG TAB Take 1-2 tablet's) every four(4) to six(6) hours as needed for pain. benzocaine-menthol (CEPACOL) 15-2.6 mg lozg lozenge Take 1 Lozenge by mouth every 3 hours as needed. FAMILY HISTORY Problem Relation Age of Onset Lipids Mother Arthritis Mother Lipids Father Cancer Maternal Grandfather stomach Cancer Maternal Uncle Diabetes Maternal Grandmother Social History Tobacco Use Smoking status: Never Smoker Smokeless tobacco: Never Used Substance Use Topics Alcohol use: Yes Drug use: No Review of Systems Constitutional: Negative for chills and fever. HENT: Positive for congestion and sore throat. Negative for ear discharge, ear pain and nosebleeds. Eyes: Positive for discharge and redness. Negative for blurred vision, double vision, photophobia and pain. Respiratory: Positive for cough. Gastrointestinal: Negative for diarrhea and vomiting. Musculoskeletal: Negative for neck pain. Skin: Negative for itching and rash. Neurological: Negative for headaches. Objective Physical Exam Constitutional: General: She is not in acute distress. Appearance: She is not toxic-appearing or diaphoretic. HENT: Head: Normocephalic and atraumatic. Right Ear: Hearing, tympanic membrane and external ear normal. Left Ear: Hearing, tympanic membrane, ear canal and external ear normal. Nose: No mucosal edema. Right Sinus: Frontal sinus tenderness present. Left Sinus: Frontal sinus tenderness present. Mouth/Throat: Pharynx: Uvula midline. Eyes: General: Right eye: No discharge. Left eye: No discharge. Conjunctiva/sclera: Right eye: Right conjunctiva is not injected. Left eye: Left conjunctiva is injected. Cardiovascular: Rate and Rhythm: Normal rate and regular rhythm. Heart sounds: Normal heart sounds, S1 normal and S2 normal. Pulmonary: Effort: Pulmonary effort is normal. Breath sounds: Normal breath sounds. Lymphadenopathy: Cervical: No cervical adenopathy. Right cervical: No superficial cervical adenopathy. Left cervical: No superficial cervical adenopathy. Comments: No cervical lymphadenopathy bilaterally Neurological: Mental Status: She is alert and oriented to person, place, and time. Gait: Gait is intact. ASSESSMENT/PLAN: 1. Sinobronchitis - ICD9: 473.9, 490, ICD10: J32.9, J40 (primary diagnosis) - Will begin treatment with Doxycycline - Supportive care with plenty of fluids, rest, and analgesia prn. - Follow up in 3-5 days if symptoms persist or worsen. - DOXYCYCLINE MONOHYDRATE 100 MG TABLET 2. Conjunctivitis of left eye, unspecified conjunctivitis type - ICD9: 372.30, ICD10: H10.9 - see medication orders - course and contagiousness issues discussed, including hand washing. - Instructed to call if high fever, development of periorbital redness or swelling, eye pain, visual changes, concerns or if symptoms persist. - POLYMYXIN B SULFATE 10,000 UNIT-TRIMETHOPRIM 1 MG/ML EYE DROPS bp elevated today. Advised to keep appointment with pcp in 2 days and bring bp cuff. Agrees to plan Moody Quiroz APRN.[employer]ING [employer]LECTOR documented in this encounter [facility] 12-10-2021 Miscellaneous Notes Telephone on 12/10/21 CBC + DIFF Skinny Miles PA-C Please file order documented in this encounter [facility] 12-10-2021 History of Presen t illness Narrative Subjective HPI HPI Christine Busch is a 56 year old female who presents today for CC of st, h/a, congestion, diarrhea. This started 2 days ago. Has tried otc medication for relief. Symptoms are worsened by nothing. Risk factors sick exposures recently. Denies cp/sob, cough, abd pain. .Patient presents with: Sore Throat: ST, [place] and congestion x 2 days PAST MEDICAL HISTORY Diagnosis Date Depressive disorder, not elsewhere classified PMDD Generalized anxiety disorder Snoring PAST SURGICAL HISTORY Procedure Laterality Date DELIVERY ONLY x2 COLONOSCOPY 11/11/2016 repeat in 10 yrs NEUROPLASTY &/TRANSPOS MEDIAN NRV CARPAL TUNNE 07/20/12 Carpal tunnel decomp right PAST SURGICAL HISTORY OF 03-19-08 left foot Ignacio bunionectomy with capsulorrhaphy S [facility] ARTHOSCOPY CARDINAL Right 05/12/2017 ALLERGIES Patient has no known allergies. MEDICATIONS losartan (COZAAR) 25 mg tablet Take 1 tablet by mouth twice daily. FLUoxetine HCl (PROZAC) 40 mg capsule Take 1 capsule by mouth once daily. FLUoxetine (PROZAC) 20 mg capsule Take 1 capsule by mouth once daily. losartan (COZAAR) 25 mg tablet Take 1 tablet by mouth twice daily. ergocalciferol, vitamin D2, (VITAMIN D2 ORAL) Take by mouth. glucosamine sulfate (GLUCOSAMINE ORAL) Take by mouth. MULTIVITAMIN ORAL Take by mouth. Blood Pressure Monitor kit 1 Each once daily. acetaminophen (TYLENOL) 325 mg tablet Take 650 mg by mouth every 6 hours as needed. IBUPROFEN 200 MG TAB Take 1-2 tablet's) every four(4) to six(6) hours as needed for pain. predniSONE (DELTASONE) 20 mg tablet Take 2 tablets by mouth once daily for 5 days. benzocaine-menthol (CEPACOL) 15-2.6 mg lozg lozenge Take 1 Lozenge by mouth every 3 hours as needed. FAMILY HISTORY Problem Relation Age of Onset Lipids Mother Arthritis Mother Lipids Father Cancer Maternal Grandfather stomach Cancer Maternal Uncle Diabetes Maternal Grandmother Social History Tobacco Use Smoking status: Never Smoker Smokeless tobacco: Never Used Substance Use Topics Alcohol use: Yes Drug use: No Review of Systems Constitutional: Negative for fever. HENT: Positive for congestion and sore throat. Negative for ear pain and nosebleeds. Respiratory: Negative for cough, shortness of breath and wheezing. Cardiovascular: Negative for chest pain. Musculoskeletal: Negative for neck pain. Skin: Negative for itching and rash. Objective Blood pressure 142/82, pulse 77, temperature 37.2 C (98.9 F), temperature source Tympanic, resp. rate 18, weight 84.2 kg (185 lb 9.6 oz), last menstrual period 05/03/2020, SpO2 97 %. Physical Exam Constitutional: General: She is not in acute distress. Appearance: She is not toxic-appearing or diaphoretic. HENT: Head: Normocephalic and atraumatic. Right Ear: Hearing, tympanic membrane, ear canal and external ear normal. Left Ear: Hearing, tympanic membrane, ear canal and external ear normal. Nose: Nose normal. Mouth/Throat: Pharynx: Uvula midline. Posterior oropharyngeal erythema present. No pharyngeal swelling or uvula swelling. Eyes: General: Lids are normal. No scleral icterus. Right eye: No discharge. Left eye: No discharge. Conjunctiva/sclera: Conjunctivae normal. Pupils: Pupils are equal, round, and reactive to light. Neck: Trachea: Trachea normal. Cardiovascular: Rate and Rhythm: Normal rate and regular rhythm. Heart sounds: Normal heart sounds. Pulmonary: Effort: Pulmonary effort is normal. Breath sounds: Normal breath sounds. Musculoskeletal: Cervical back: Normal range of motion and neck supple. Lymphadenopathy: Cervical: Cervical adenopathy present. Right cervical: Superficial cervical adenopathy present. Left cervical: Superficial cervical adenopathy present. Skin: Findings: No rash. Neurological: Mental Status: She is alert and oriented to person, place, and time. ASSESSMENT/PLAN: 1. Viral syndrome - ICD9: 079.99, ICD10: B34.9 (primary diagnosis) - Discussed viral etiology and rationale for treatment. - Rapid strep negative in office today - Symptomatic treatment with prn analgesia - Supportive care with fluids and rest - Follow up in 3-5 days if symptoms persist or sooner if worsening of symptoms 2. Sore throat - ICD9: 462, ICD10: J02.9 - suspect viral - Alere Strep Test neg, no culture pending - Discussed supportive care treatment with fluids, rest and analgesia. - Contagious dz precautions discussed- including considered contagious until on antibiotics for 24 hours -steroid for severity of sore throat. - ALERE STREP A TEST (AG) - COVID WITH FLUA+B, ROUTINE - PREDNISONE 20 MG TABLET Agrees to plan Moody Quiroz APRN.ANANTH documented in this encounter [facility] 12-10-2021 Instructions Moody Quiroz APRN.ANANTH - 12/10/2021 10:31 AM EDT ASSESSMENT/PLAN: 1. Viral syndrome - ICD9: 079.99, ICD10: B34.9 (primary diagnosis) - Discussed viral etiology and rationale for treatment. - Rapid strep negative in office today - Symptomatic treatment with prn analgesia - Supportive care with fluids and rest - Follow up in 3-5 days if symptoms persist or sooner if worsening of symptoms 2. Sore throat - ICD9: 462, ICD10: J02.9 - suspect viral - Alere Strep Test neg, no culture pending - Discussed supportive care treatment with fluids, rest and analgesia. - Contagious dz precautions discussed- including considered contagious until on antibiotics for 24 hours - ALERE STREP A TEST (AG) - COVID WITH FLUA+B, ROUTINE - PREDNISONE 20 MG TABLET documented in this encounter [facility] documented as of this encounter (statuses as of 12/10/2021) [facility] History of Past illness Narrative* Problem Noted Date Resolved Date Shoulder tendinitis 09/09/2015 09/23/2016 Trigger thumb of right hand 05/07/20130 10/2016 Right carpal tunnel syndrome 06/12/201210/2016 Left carpal tunnel syndrome 06/12/20120 10/2016 Lateral epicondylitis of right elbow 06/12/2012 09/23/2016 Hallux valgus (acquired) 02/18/2008 017 documented as of this encounter (statuses as of 12/10/2021) [facility] History of Past illness Narrative* Problem Noted Date Resolved Date Shoulder tendinitis 09/09/2015 09/23/2016 Trigger thumb of right hand 05/07/20130 10/2016 Right carpal tunnel syndrome 06/12/201210/2016 Left carpal tunnel syndrome 06/12/20120 10/2016 Lateral epicondylitis of right elbow 06/12/2012 09/23/2016 Hallux valgus (acquired) 02/18/2008 017 documented as of this encounter (statuses as of 12/14/2021) [facility] History of Past illness Narrative* Problem Noted Date Resolved Date Shoulder tendinitis 09/09/2015 09/23/2016 Trigger thumb of right hand 05/07/20130 10/2016 Right carpal tunnel syndrome 06/12/201210/2016 Left carpal tunnel syndrome 06/12/20120 10/2016 Lateral epicondylitis of right elbow 06/12/2012 09/23/2016 Hallux valgus (acquired) 02/18/2008 017 documented as of this encounter (statuses as of 01/20/2022) [facility] of Past illness Narrative* Problem Noted Date Resolved Date Shoulder tendinitis 09/09/2015 09/23/2016 Trigger thumb of right hand 05/07/20130 10/2016 Right carpal tunnel syndrome 06/12/201210/2016 Left carpal tunnel syndrome 06/12/20120 10/2016 Lateral epicondylitis of right elbow 06/12/2012 09/23/2016 Hallux valgus (acquired) 02/18/2008 017 documented as of this encounter (statuses as of 06/17/2022) [facility] History of Past illness Narrative* Problem Noted Date Resolved Date Shoulder tendinitis 09/09/2015 09/23/2016 Trigger thumb of right hand 05/07/20130 10/2016 Right carpal tunnel syndrome 06/12/201210/2016 Left carpal tunnel syndrome 06/12/20120 10/2016 Lateral epicondylitis of right elbow 06/12/2012 09/23/2016 Hallux valgus (acquired) 02/18/2008 017 documented as of this encounter (statuses as of 10/17/2022) [facility] History of Past illness Narrative* Problem Noted Date Resolved Date Shoulder tendinitis 09/09/2015 09/23/2016 Trigger thumb of right hand 05/07/20130 10/2016 Right carpal tunnel syndrome 06/12/201210/2016 Left carpal tunnel syndrome 06/12/20120 10/2016 Lateral epicondylitis of right elbow 06/12/2012 09/23/2016 Hallux valgus (acquired) 02/18/2008 017 documented as of this encounter (statuses as of 12/20/2022) [facility] of Past illness Narrative* Problem Noted Date Diagnosed Date Resolved Date Shoulder tendinitis 09/09/2015 09/23/19 17 Trigger thumb of right hand 05/07/2013 09/23/2016 Right carpal tunnel syndrome 06/12/2012 09/23/2016 Left carpal tunnel syndrome 06/12/2012 09/23/2016 Lateral epicondylitis of right elbow 06/12/2012 09/23/2016 Hallux valgus (acquired) 02/18/200810/2016 documented as of this encounter (statuses as of 06/06/2023) [facility] History of Past illness Narrative* Problem Noted Date Diagnosed Date Resolved Date Shoulder tendinitis 09/09/2015 09/23/19 17 Trigger thumb of right hand 05/07/2013 09/23/2016 Right carpal tunnel syndrome 06/12/2012 09/23/2016 Left carpal tunnel syndrome 06/12/2012 09/23/2016 Lateral epicondylitis of right elbow 06/12/2012 09/23/2016 Hallux valgus (acquired) 02/18/200810/2016 documented as of this encounter (statuses as of 06/12/2023) [facility] Diagnosis Viral syndrome- Primary Unspecified viral infection, in conditions classified elsewhere and of unspecified site Sore throat Acute pharyngitis [facility] encounter [facility] Diagnosis Anxiety and depression- Primary Dysthymic disorder [facility] Diagnosis Sinobronchitis- Primary Unspecified sinusitis (chronic) Conjunctivitis of left eye, unspecified conjunctivitis type [facility] this encounter [facility]* Diagnosis Hypertension, essential- Primary Unspecified essential hypertension Hyperlipidemia, unspecified hyperlipidemia type IFG (impaired fasting glucose) Impaired fasting glucose Gastroesophageal reflux disease without esophagitis Esophageal reflux Anxiety and depression Dysthymic disorder Need for influenza vaccination Need for prophylactic vaccination and inoculation against influenza [facility] Diagnosis Encounter for screening mammogram for breast cancer [facility] Diagnosis Preoperative clearance- Primary Preoperative examination, unspecified Hypertension, essential Unspecified essential hypertension IFG (impaired fasting glucose) Impaired fasting glucose Moderate mixed hyperlipidemia not requiring statin therapy Anxiety and depression Dysthymic disorder Gastroesophageal reflux disease without esophagitis Esophageal reflux Chronic pain of both knees SCC (squamous cell carcinoma), face Squamous cell carcinoma of skin of other and unspecified parts of face [facility] Diagnosis Hypertension, essential Unspecified essential hypertension [facility] this [facility] Diagnosis Hypertension, essential- Primary Unspecified essential hypertension Moderate mixed hyperlipidemia not requiring statin therapy IFG (impaired fasting glucose) Impaired fasting glucose Gastroesophageal reflux disease without esophagitis Esophageal reflux Anxiety and depression Dysthymic disorder History of total knee arthroplasty, right Right buttock pain Mylagia and myositis, unspecified [facility] this [facility] Diagnostic Procedure Only (Routine) - Pending Review Specialty Diagnoses / Procedures Referred By Niki howard Referred To Contact [facility] Diagnoses Encounter for screening mammogram for breast cancer Procedures SO SCREENING SCREENING MAMMOGRAPHY BI 2-VIEW BREAST INC CAD Will Miles PA-C [address] [place] [address] [facility] [address] [place] [phone] Referral ID Status Reason Start Date Expiration Date Visits Requested Visits Authorized [id number] Pending Review Auto-Generat ed Referral 2022 11/11/2023 [facility] Outpatient Procedure (Routine) - Closed Specialty Diagnoses / Procedures Referred By Niki howard Referred To [facility] Diagnoses Preoperative clearance Procedures ECG COMPLETE ECG ROUTINE ECG W/LEAST 12 LDS W/I&R Will Miles PA-C [address] [place] [address] [facility] [place] [address] [place] [id number] Referral ID Status Reason Start Date Expiration Date V isits Requested Visits Authorized [id number] Closed Auto-Generate d Referral 12/19/2022 12/19/2023 1 1 [facility] Advance Directives No Advanced Directives Records FoundDocuments on File Type Date Recorded 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 Expl anation Advance Directive(s) 11/11/2016 10:57 AM Reason for Referral Specialty Diagnoses / Procedures Referred By Contac t Referred To Contact Pain Management Diagnoses Right buttock pain Procedures CONSULT TO PAIN MGT OFFICE/OUTPATIENT NEW HIGH MDM 60-74 MINUTES Will Miles PA-C [address] [place] [address] Referral ID Status Reason Start Date Expiration Date Visits Requested Visits Authorized [id number] Authorized PCP Requested Referral 3 06/11/2024 1 1 Specialty Diagnoses / Procedures Referred By Contac t Referred To Contact [facility] Diagnoses Right buttock pain Procedures XR LUMBAR GENERAL 3V AP/LAT/L5-S1 RADEX SPINE LUMBOSACRAL 2/3 VIEWS Will Miles PA-C [address] [place] [address] [place] [address] Referral ID Status Reason Start Date Expiration Date V isits Requested Visits Authorized [id number] Closed Auto-Generate d Referral 06/12/2023 07/11/2024 1 1 Summary Purpose Family History No Family History Records Found Additional Source Comments Source Comments (unrecognize d section and content) In the event this informatio n is protected by the Federal Confidentiality of Alcohol and Drug Abuse Patient Records regulations: The Federal rules restrict any use of the information to criminally investigate or prosecute any alcohol or drug abuse patient.[facility] the event this information is protected by the Federal Confidentiality of Alcohol and Drug Abuse Patient Records regulations: The Federal rules restrict any use of the information to criminally investigate or prosecute any alcohol or drug abuse patient.[facility] the event this information is protected by the Federal Confidentiality of Alcohol and Drug Abuse Patient Records regulations: The Federal rules restrict any use of the information to criminally investigate or prosecute any alcohol or drug abuse patient.[facility] the event this information is protected by the Federal Confidentiality of Alcohol and Drug Abuse Patient Records regulations: The Federal rules restrict any use of the information to criminally investigate or prosecute any alcohol or drug abuse patient.[facility] the event this information is protected by the Federal Confidentiality of Alcohol and Drug Abuse Patient Records regulations: The Federal rules restrict any use of the information to criminally investigate or prosecute any alcohol or drug abuse patient.[facility] the event this information is protected by the Federal Confidentiality of Alcohol and Drug Abuse Patient Records regulations: The Federal rules restrict any use of the information to criminally investigate or prosecute any alcohol or drug abuse patient.[facility] the event this information is protected by the Federal Confidentiality of Alcohol and Drug Abuse Patient Records regulations: The Federal rules restrict any use of the information to criminally investigate or prosecute any alcohol or drug abuse patient.[facility] the event this information is protected by the Federal Confidentiality of Alcohol and Drug Abuse Patient Records regulations: The Federal rules restrict any use of the information to criminally investigate or prosecute any alcohol or drug abuse patient.[facility] the event this information is protected by the Federal Confidentiality of Alcohol and Drug Abuse Patient Records regulations: The Federal rules restrict any use of the information to criminally investigate or prosecute any alcohol or drug abuse patient.[facility] Reason for Visit (unrecogniz ed section and content) Reason Comments Orders Reason Comments Sinus Problem drainage, cough, sor e throat x 6 days, left eye red and drainage x 1 day Reason Onset Date Comments 6 Month Exam Immunizations 06/17/2022 Flu vaccination Reason Comments Pre-Op Exam Right knee replaceme nt. 01/03/23. Dr Pearce. [facility] Reason Onset Date Comments Refill Request 06/05/2023 Care Teams (unrecognized sec tion and content) Blue Line Trimmer Relationship Specialty Start Date End Date Will Miles PA-C [address] [facility] [place] [address] PCP - General Family Practice 04/18/17 Blue Line Trimmer Relationship Specialty Start Date End Date Will Miles PA-C [address] [facility] [place] [address] PCP - General Family Practice 04/18/17 Blue Line Trimmer Relationship Specialty Start Date End Date Will Miles PA-C [address] [facility] [place] [address] PCP - General Family Practice 04/18/17 Blue Line Trimmer Relationship Specialty Start Date End Date Will Miles PA-C [address] [facility] [place] [address] PCP - General Family Medicine 04/18/17 Blue Line Trimmer Relationship Specialty Start Date End Date Will Miles PA-C [address] [facility] [place] [address] PCP - General Family Medicine 04/18/17 Blue Line Trimmer Relationship Specialty Start Date End Date Will Miles PA-C [address] [facility] [place] [address] PCP - General Family Medicine 04/18/17 Blue Line Trimmer Relationship Specialty Start Date End Date Will Miles PA-C [address] [facility] [place] [address] PCP - General Family Medicine 04/18/17 Blue Line Trimmer Relationship Specialty Start Date End Date Will Miles PA-C [address] [facility] [place] [address] PCP - General Family Medicine 04/18/17 INFORMATION SOURCE (unrecogn ized section and content) FOR RECORDS PERTAINING TO PATIENTS WHO ARE OR HAVE BEEN ENROLLED IN A CHEMICAL DEPENDENCY/SUBSTANCEABUSE PROGRAM, SOME INFORMATION MAY BE OMITTED. This clinical summary was aggregated from multiple sources. Caution should be exercised in using it in the provision of clinical care. This summary normalizes information from multiple sources, and as a consequence, information in this document may materially change the coding, format and clinical context of patient data. In addition, data may be omitted in some cases. CLINICAL DECISIONS SHOULD BE BASED ON THE PRIMARY CLINICAL RECORDS. [employer] provides no warranty or guarantee of the accuracy or completeness of information in this document.
== END | disposition home or self-care (01) ==
LOC: SL 09:56
PROVIDERS: PCP Physician Assistant; Referring Provider Internal Medicine Critical Care Medicine; Visit Provider Internal Medicine Critical Care Medicine
DX: G47.33 Obstructive sleep apnea (adult) (pediatric) (principal); E66.09 Other obesity due to excess calories; Z46.89 Encounter for fitting and adjustment of other specified devices
CPT/HCPCS: 98960; G0463

== ENCOUNTER → 2023-12-26 | Outpatient (CLI) | payer BC, SELFPAY ==
--- NOTE | 2023-12-26 11:59 | BI_ITS ---
MAMMOGRAPHY - BILATERAL SCREENING REASON FOR EXAM: Female, 58 years old. Routine annual screening examination. PERTINENT HISTORY: Non-contributory. TECHNIQUE: Digital bilateral breast ariella (3D mammographic acquisition) in the CC and MLO projections. 2-D mediolateral oblique (MLO) and craniocaudad (CC) views of both breasts were obtained. CAD: Full Field Digital Mammography with Computer Added Detection was performed. COMPARISON: Comparison is made with prior study dated October 26, 2022 and August 30, 2021. FINDINGS: Breast Composition: The breasts are heterogeneously dense, which may obscure small masses. There are no dominant masses or suspicious calcifications. Stable bilateral fat containing axillary lymph nodes. No other significant abnormalities are identified. There has been no significant change since the prior study. BI/SCRN MAMM (CAD)W/ARIELLA BILAT IMPRESSION: Stable bilateral screening mammogram. Yearly follow-up mammogram recommended. (A) ASSESSMENT CATEGORY: BIRADS Category 2: Benign. A letter regarding these results will be sent to the patient by the facility within 30 days. Approximately 10% of breast cancers are not detected by mammography. A normal mammogram should not delay biopsy of a clinically suspicious abnormality. [id number] Electronically Signed: Evens Streeter MD at 13:23 EDT ,
== END | disposition home or self-care (01) ==
LOC: OPBI 11:59
PROVIDERS: PCP Physician Assistant; Referring Provider Obstetrics & Gynecology; Visit Provider Obstetrics & Gynecology
DX: Z12.31 Encounter for screening mammogram for malignant neoplasm of breast (principal)
CPT/HCPCS: 77063; 77067

== ENCOUNTER → 2025-02-04 | Outpatient (CLI) | payer BC, SELFPAY ==
--- NOTE | 2025-02-04 10:15 | BI_ITS ---
EXAM: SCRN MAMM (CAD)W/ARIELLA BILAT DATE: 02/04/2025 CLINICAL HISTORY: F, Age 59 y/o , SCREENING No family history. BREAST CANCER RISK ASSESSMENT: Not assessed. TECHNIQUE: Bilateral screening digital breast tomosynthesis with 2D and 3D images. Computer aided detection. COMPARISON: Prior exam(s) dated December 26, 2023.. FINDINGS: TISSUE DENSITY: The breast tissue is composed of scattered areas of fibroglandular density. Bilateral Breast Mammographic Findings: No significant masses, calcifications or other abnormalities are identified. No suspicious masses, areas of developing architectural distortion, or suspicious calcifications. There has been no significant interval change. BI/SCRN MAMM (CAD)W/ARIELLA BILAT IMPRESSION: Stable examination. OVERALL FINAL ASSESSMENT BI-RADS 1: NEGATIVE. RECOMMEND ANNUAL MAMMOGRAPHIC SCREENING. RECOMMENDATION: Routine annual follow-up in 1 Year A letter with findings and recommendations will be mailed to the patient. Reading Location: [place] [id number]
== END | disposition home or self-care (01) ==
LOC: OPBI 10:14
PROVIDERS: PCP Family Medicine; Referring Provider Obstetrics & Gynecology; Visit Provider Obstetrics & Gynecology
DX: Z12.31 Encounter for screening mammogram for malignant neoplasm of breast (principal)
CPT/HCPCS: 77063; 77067